=== PATIENT | male | born 1945 | race African-American/Black ===

== ENCOUNTER 2019-05-12 18:27 | Emergency (ER) | payer OTHER ==
[~2019-05-12] VITALS: Ht 182.9 cm; Wt 72.6 kg
[2019-05-12 21:35] LABS: Basophils # (auto) 0 uL; Basophils % (auto) 0.4 % (0.0-2.0); Eosinophils # (auto) 0.1 uL; Eosinophils % (auto) 1.8 % (0.0-7.0); Hematocrit 43.1 % (41.0-53.0); Lymphocytes # (auto) 1.7 uL; Lymphocytes % (auto) 21.6 % (10.0-50.0); Mean Corpuscular Hemoglobin 33.5 pg (28.0-32.0); Mean Corpuscular Hgb Conc. 34.7 g/dL (32.0-36.0); Mean Corpuscular Volume 96.5 fL (80.0-100.0); Monocytes # (auto) 0.5 uL; Monocytes % (auto) 6.5 % (0.0-12.0); Neutrophils # (auto) 5.5 uL; Neutrophils % (auto) 69.7 % (37.0-80.0); Nucleated Red Blood Cells % 0.1 %; Platelet Count (auto) 130 10^3/uL (140-450); Red Blood Cells 4.47 10^6/uL (4.5-5.90); Red Cell Distribution Width 12.9 % (11.8-14.3); White Blood Cell 7.9 10^3/uL (4.4-10.8)
[2019-05-12 21:49] LABS: INR 0.98 (0.9-1.15); Partial Thromboplastin Time 25.2 sec (23.64-32.05)
[2019-05-12 21:56] LABS: Potassium 4.3 mmol/L (3.5-5.1)
[2019-05-12 21:59] LABS: BUN/Creatinine Ratio 10.6; Bilirubin, Total 0.5 mg/dL (0.2-1.0); Total Protein 7.9 g/dL (6.4-8.2)
[2019-05-12] MEDS ORDERED: FOLIC ACID 1 MG, MULTIPLE VITAMIN 10 ML, MAGNESIUM SULF SDV 50% 8 MEQ, THIAMINE INJ 100... INJ SCH ×5 (22:00)
[2019-05-12] MEDS ORDERED: LIDOCAINE W/ EPINEPHRINE 2% INJ 20ML VIAL ID ONE (22:00)
[2019-05-12 23:40] LABS: Urine Bacteria NONE SEEN /hpf (None Seen); Urine Blood Negative /uL (Negative); Urine Specific Gravity 1.004 (1.001-1.035); Urine WBC 6 /hpf (0 - 3)
[2019-05-12 23:48] LABS: Amphetamine Screen, Urine NEGATIVE (NEGATIVE); Barbiturate Scree,Urine NEGATIVE (NEGATIVE); Benzodiazephine Screen, Urine NEGATIVE (NEGATIVE); Cannabinoid Screen, Urine NEGATIVE (NEGATIVE); Cocaine Screen, Urine NEGATIVE (NEGATIVE); Opiate Scree,Urine NEGATIVE (NEGATIVE); Phencyclidine Screen, Urine NEGATIVE (NEGATIVE)
[2019-05-13] MEDS ORDERED: LIDOCAINE W/ EPINEPHRINE 1% 20ML VIAL ONE (00:06)
[2019-05-13] MEDS ORDERED: SODIUM CHLORIDE 0.9% 1,000 ML IV ONE (01:00)
[2019-05-13] MEDS ORDERED: LIDOCAINE 2% JELLY 11ml (GLYDO) ONE (10:03)
[2019-05-13] MEDS ORDERED: LIDOCAINE 2% JELLY 11ml (GLYDO) UR ONE (10:15)
[2019-05-13 11:27] VITALS: BP 149/59
== END 2019-05-13 11:49 | disposition short-term general hospital (02) ==
LOC: EDBD 18:27 → ER 18:34
DX: S01.511A Laceration without foreign body of lip, initial encounter (principal); F10.129 Alcohol abuse with intoxication, unspecified; N39.0 Urinary tract infection, site not specified; M47.892 Other spondylosis, cervical region; Y90.6 Blood alcohol level of 120-199 mg/100 ml; W01.0XXA Fall on same level from slipping, tripping and stumbling without subsequent striking against object, initial encounter; Y93.89 Activity, other specified; Y92.89 Other specified places as the place of occurrence of the external cause; Y99.8 Other external cause status
CPT/HCPCS: 12011; 36415; 70450; 70486; 72125; 72131; 80053; 80307; 80320; 81001; 83880; 85025; 85610; 85730; 93005

== ENCOUNTER 2021-04-05 19:32 | Inpatient (IN) | payer OTHER ==
[~2021-04-05] VITALS: Ht 160 cm; Wt 63.1 kg
[2021-04-05 21:29] LABS: Basophils # (auto) 0.1 10 ^3/uL (0-0.2); Basophils % (auto) 0.4 % (0.0-2.0); Eosinophils # (auto) 0 10 ^3/uL (0-0.8); Eosinophils % (auto) 0.4 % (0.0-7.0); Hematocrit 29.7 % (41.0-53.0); Hemoglobin 9.8 g/dL (13.5-17.5); Lymphocytes # (auto) 1.6 10 ^3/uL (0.4-5.4); Lymphocytes % (auto) 12.6 % (10.0-50.0); Mean Corpuscular Hgb Conc. 33.1 g/dL (32.0-36.0); Mean Corpuscular Volume 87.6 fL (80.0-100.0); Monocytes # (auto) 0.6 10 ^3/uL (0-1.3); Monocytes % (auto) 4.6 % (0.0-12.0); Neutrophils # (auto) 10.3 10 ^3/uL (1.6-8.6); Red Blood Cells 3.39 10^6/uL (4.5-5.90); White Blood Cell 12.6 10^3/uL (4.4-10.8)
[2021-04-05] MEDS ORDERED: ACETAMINOPHEN 650 mg PER 20.3 mL UD PO ONE (21:30)
[2021-04-05 21:41] LABS: INR 1.15 (0.9-1.15)
[2021-04-05 21:42] LABS: Albumin 2.5 g/dL (3.4-5.0); Magnesium 3.2 mg/dL (1.6-2.6); Potassium 5.1 mmol/L (3.5-5.1)
[2021-04-05 21:48] LABS: Lactic Acid w/Reflex 2.1 mmol/L (0.4-2.0)
[2021-04-05 21:48] LABS: Urine Bacteria FEW /hpf (None Seen); Urine Blood 1+ /uL (Negative); Urine Specific Gravity 1.013 (1.001-1.035); Urine WBC 361 /hpf (0 - 3); Urine WBC Clumps PRESENT /hpf (None Seen)
[2021-04-05 21:51] LABS: Bilirubin, Total 0.2 mg/dL (0.2-1.0); CRP High Sensitivity 14.8 mg/dL (< 0.3); Total Protein 9.4 g/dL (6.4-8.2)
[2021-04-05] MEDS ORDERED: PIPERACILLIN-TAZOB 2.25GM 50 ML IV ONE (23:00)
[2021-04-05] MEDS ORDERED: VANCOMYCIN 1GM/250ML 250 ML IV ONE (23:00)
[2021-04-05] MEDS ORDERED: SODIUM CHLORIDE 0.9% 1,000 ML IV ONE (23:00)
[2021-04-06] MEDS ORDERED: VANCOMYCIN PER PHARMACY 0 MG IV SCH (00:45)
[2021-04-06] MEDS ORDERED: MORPHINE SULFATE INJECTION 2 MG/ML SYRG IV PRN (00:45)
[2021-04-06] MEDS ORDERED: DOCUSATE SOD 100 MG CAP PO PRN (00:45)
[2021-04-06] MEDS ORDERED: NITROGLYCERIN 0.4 MG SL TAB SL PRN (00:45)
[2021-04-06] MEDS ORDERED: ONDANSETRON HCL 4 MG/2 ML VIAL IV PRN (00:45)
[2021-04-06] MEDS ORDERED: ALBUMIN 25% 50 ML IV ONE (01:30)
[2021-04-06] MEDS: PIPERACILLIN-TAZOB 2.25GM 50 ML IV SCH ×3 (06:14→18:16)
[2021-04-06] MEDS: SODIUM CHLOR 0.9% PF (SALINE LOCK) 10ML VIAL/SYR IV SCH ×3 (06:14→22:00)
[2021-04-06 06:51] LABS: Eosinophils # (auto) 0.1 10 ^3/uL (0-0.8); Hemoglobin 7.2 g/dL (13.5-17.5); Lymphocytes # (auto) 1.9 10 ^3/uL (0.4-5.4); Monocytes # (auto) 0.8 10 ^3/uL (0-1.3); Neutrophils # (auto) 10.5 10 ^3/uL (1.6-8.6); Red Blood Cells 2.45 10^6/uL (4.5-5.90)
[2021-04-06 06:53] LABS: Basophils # (auto) 0 10 ^3/uL (0-0.2); Basophils % (auto) 0.3 % (0.0-2.0); Eosinophils % (auto) 0.9 % (0.0-7.0); Hematocrit 21.3 % (41.0-53.0); Lymphocytes % (auto) 14.4 % (10.0-50.0); Mean Corpuscular Hemoglobin 29.2 pg (28.0-32.0); Mean Corpuscular Hgb Conc. 33.5 g/dL (32.0-36.0); Mean Corpuscular Volume 87.1 fL (80.0-100.0); Monocytes % (auto) 5.9 % (0.0-12.0); Neutrophils % (auto) 78.5 % (37.0-80.0); Nucleated Red Blood Cells % 0.1 %; Red Cell Distribution Width 15.1 % (11.8-14.3); White Blood Cell 13.3 10^3/uL (4.4-10.8)
[2021-04-06 07:18] LABS: Albumin 2.2 g/dL (3.4-5.0); Calcium 8.5 mg/dL (8.5-10.1); Potassium 4.7 mmol/L (3.5-5.1)
[2021-04-06 07:24] LABS: BUN/Creatinine Ratio 18.9; Bilirubin, Total 0.2 mg/dL (0.2-1.0); Total Protein 7.7 g/dL (6.4-8.2)
[2021-04-06] MEDS: FAMOTIDINE (10MG/ML) 2ML VL IV SCH (10:40)
[2021-04-06] MEDS: ZINC SULFATE 220mg CAP or TAB PO SCH (10:40)
[2021-04-06] MEDS: ASCORBIC ACID 500 MG TAB PO SCH ×2 (10:41→21:42)
[2021-04-06] MEDS: MULTIPLE VITAMIN TAB PO SCH (10:41)
[2021-04-06] MEDS: HEPARIN SODIUM (PORCINE) 5000 UNITS/ML 1ML VIAL SC SCH ×2 (10:44→21:42)
[2021-04-06] MEDS: LACTATED RINGER'S 1,000 ML IV SCH (13:45)
[2021-04-06] MEDS ORDERED: LIDOCAINE 2% JELLY 11ml (GLYDO) UR ONE (16:00)
[2021-04-06 19:00] VITALS: BP 112/53
[2021-04-06 22:00] VITALS: BP 117/40
[2021-04-06] MEDS: HYDROcodone-ACET 5/325MG TAB PO PRN (23:27)
[2021-04-07] MEDS: PIPERACILLIN-TAZOB 2.25GM 50 ML IV SCH ×5 (01:57→23:34)
[2021-04-07 02:55] VITALS: BP 112/53
[2021-04-07] MEDS: LACTATED RINGER'S 1,000 ML IV SCH (03:05)
[2021-04-07] MEDS ORDERED: MULTCAP45 PO (04:35)
[2021-04-07] MEDS ORDERED: SULF400I3 PO (04:35)
[2021-04-07] MEDS ORDERED: ASCO500T11 PO (04:35)
[2021-04-07] MEDS ORDERED: GABA100C9 PO (04:35)
[2021-04-07] MEDS ORDERED: FOLI1TAB6 PO (04:35)
[2021-04-07] MEDS ORDERED: TRAM50TA2 PO (04:35)
[2021-04-07] MEDS ORDERED: BACL10TA PO (04:35)
[2021-04-07] MEDS ORDERED: CHOL20007 PO (04:35)
[2021-04-07 05:00] VITALS: BP 98/62
[2021-04-07 05:24] LABS: Lymphocytes # (auto) 1.9 10 ^3/uL (0.4-5.4); Red Cell Distribution Width 15.1 % (11.8-14.3)
[2021-04-07 05:28] LABS: Basophils # (auto) 0 10 ^3/uL (0-0.2); Basophils % (auto) 0.4 % (0.0-2.0); Eosinophils # (auto) 0.2 10 ^3/uL (0-0.8); Eosinophils % (auto) 1.6 % (0.0-7.0); Hematocrit 22.5 % (41.0-53.0); Hemoglobin 7.8 g/dL (13.5-17.5); Lymphocytes % (auto) 18.5 % (10.0-50.0); Mean Corpuscular Hemoglobin 30.3 pg (28.0-32.0); Mean Corpuscular Hgb Conc. 34.6 g/dL (32.0-36.0); Mean Corpuscular Volume 87.6 fL (80.0-100.0); Monocytes # (auto) 0.7 10 ^3/uL (0-1.3); Monocytes % (auto) 6.7 % (0.0-12.0); Neutrophils # (auto) 7.7 10 ^3/uL (1.6-8.6); Neutrophils % (auto) 72.8 % (37.0-80.0); Red Blood Cells 2.56 10^6/uL (4.5-5.90); White Blood Cell 10.6 10^3/uL (4.4-10.8)
[2021-04-07] MEDS: SODIUM CHLOR 0.9% PF (SALINE LOCK) 10ML VIAL/SYR IV SCH ×3 (05:38→22:12)
[2021-04-07 05:44] LABS: Potassium 4.1 mmol/L (3.5-5.1)
[2021-04-07 05:51] LABS: BUN/Creatinine Ratio 21.2; Bilirubin, Total 0.2 mg/dL (0.2-1.0); Calcium 8.1 mg/dL (8.5-10.1); Total Protein 7.6 g/dL (6.4-8.2)
[2021-04-07 09:00] VITALS: BP 103/50
[2021-04-07] MEDS: ASCORBIC ACID 500 MG TAB PO SCH ×2 (09:36→22:13)
[2021-04-07] MEDS: FAMOTIDINE (10MG/ML) 2ML VL IV SCH (09:36)
[2021-04-07] MEDS: ZINC SULFATE 220mg CAP or TAB PO SCH (09:36)
[2021-04-07] MEDS: MULTIPLE VITAMIN TAB PO SCH (09:36)
[2021-04-07] MEDS: HEPARIN SODIUM (PORCINE) 5000 UNITS/ML 1ML VIAL SC SCH ×2 (09:37→22:12)
[2021-04-07] MEDS: HYDROcodone-ACET 5/325MG TAB PO PRN (12:40)
[2021-04-07 12:53] VITALS: BP 105/56
[2021-04-07 17:00] VITALS: BP 91/44
[2021-04-07 22:00] VITALS: BP 124/56
[2021-04-08] MEDS ORDERED: VANCOMYCIN 1GM/250ML 250 ML IV SCH (01:00)
[2021-04-08 05:00] VITALS: BP 123/54
[2021-04-08 05:34] LABS: Eosinophils # (auto) 0.2 10 ^3/uL (0-0.8); Mean Corpuscular Hemoglobin 29.6 pg (28.0-32.0); Monocytes # (auto) 0.8 10 ^3/uL (0-1.3); Red Cell Distribution Width 14.8 % (11.8-14.3)
[2021-04-08] MEDS: SODIUM CHLOR 0.9% PF (SALINE LOCK) 10ML VIAL/SYR IV SCH ×3 (05:34→23:08)
[2021-04-08] MEDS: PIPERACILLIN-TAZOB 2.25GM 50 ML IV SCH ×4 (05:34→23:52)
[2021-04-08] MEDS: LACTATED RINGER'S 1,000 ML IV SCH (05:35)
[2021-04-08 05:36] LABS: Basophils # (auto) 0 10 ^3/uL (0-0.2); Basophils % (auto) 0.6 % (0.0-2.0); Eosinophils % (auto) 1.9 % (0.0-7.0); Hematocrit 21.6 % (41.0-53.0); Hemoglobin 7.3 g/dL (13.5-17.5); Lymphocytes # (auto) 2.5 10 ^3/uL (0.4-5.4); Lymphocytes % (auto) 28.4 % (10.0-50.0); Mean Corpuscular Hgb Conc. 33.6 g/dL (32.0-36.0); Mean Corpuscular Volume 88.1 fL (80.0-100.0); Neutrophils # (auto) 5.2 10 ^3/uL (1.6-8.6); Neutrophils % (auto) 60.1 % (37.0-80.0); Red Blood Cells 2.46 10^6/uL (4.5-5.90); White Blood Cell 8.7 10^3/uL (4.4-10.8)
[2021-04-08 05:56] LABS: Calcium 8.3 mg/dL (8.5-10.1); Potassium 3.8 mmol/L (3.5-5.1)
[2021-04-08 06:02] LABS: BUN/Creatinine Ratio 20.4; Bilirubin, Total 0.2 mg/dL (0.2-1.0); Total Protein 7.8 g/dL (6.4-8.2)
[2021-04-08 09:00] VITALS: BP 118/58
[2021-04-08] MEDS: ZINC SULFATE 220mg CAP or TAB PO SCH (11:02)
[2021-04-08] MEDS: ASCORBIC ACID 500 MG TAB PO SCH ×2 (11:03→23:11)
[2021-04-08] MEDS: MULTIPLE VITAMIN TAB PO SCH (11:03)
[2021-04-08] MEDS: HEPARIN SODIUM (PORCINE) 5000 UNITS/ML 1ML VIAL SC SCH ×2 (11:15→23:12)
[2021-04-08 12:53] VITALS: BP 120/52
[2021-04-08 17:00] VITALS: BP 102/53
[2021-04-08 21:35] VITALS: BP 122/62
[2021-04-08 21:39] VITALS: BP 122/62
[2021-04-09] MEDS: LACTATED RINGER'S 1,000 ML IV SCH ×3 (05:02→21:15)
[2021-04-09] MEDS: PIPERACILLIN-TAZOB 2.25GM 50 ML IV SCH ×3 (05:18→18:39)
[2021-04-09] MEDS: SODIUM CHLOR 0.9% PF (SALINE LOCK) 10ML VIAL/SYR IV SCH ×3 (05:18→21:17)
[2021-04-09 05:27] VITALS: BP 111/56
[2021-04-09 08:53] VITALS: BP 115/60
[2021-04-09] MEDS: MULTIPLE VITAMIN TAB PO SCH (10:44)
[2021-04-09] MEDS: ASCORBIC ACID 500 MG TAB PO SCH ×2 (10:44→21:17)
[2021-04-09] MEDS: ZINC SULFATE 220mg CAP or TAB PO SCH (10:44)
[2021-04-09] MEDS: HEPARIN SODIUM (PORCINE) 5000 UNITS/ML 1ML VIAL SC SCH ×2 (10:56→21:20)
[2021-04-09 13:00] VITALS: BP 114/57
[2021-04-09] MEDS: VANCOMYCIN 1GM/250ML 250 ML IV SCH (16:02)
[2021-04-09 17:00] VITALS: BP 120/50
[2021-04-09 20:10] VITALS: BP 140/57
[2021-04-09 21:11] VITALS: BP 140/57
[2021-04-10] MEDS: PIPERACILLIN-TAZOB 2.25GM 50 ML IV SCH ×5 (00:12→23:26)
[2021-04-10] MEDS: HYDROcodone-ACET 5/325MG TAB PO PRN ×2 (00:27→11:46)
[2021-04-10] MEDS: SODIUM CHLOR 0.9% PF (SALINE LOCK) 10ML VIAL/SYR IV SCH ×3 (05:27→22:04)
[2021-04-10 05:39] VITALS: BP 90/46
[2021-04-10 09:00] VITALS: BP 114/48
[2021-04-10] MEDS: ASCORBIC ACID 500 MG TAB PO SCH ×2 (09:37→22:04)
[2021-04-10] MEDS: MULTIPLE VITAMIN TAB PO SCH (09:37)
[2021-04-10] MEDS: ZINC SULFATE 220mg CAP or TAB PO SCH (09:37)
[2021-04-10] MEDS: HEPARIN SODIUM (PORCINE) 5000 UNITS/ML 1ML VIAL SC SCH ×2 (09:38→22:05)
[2021-04-10] MEDS: LACTATED RINGER'S 1,000 ML IV SCH (11:01)
[2021-04-10 13:00] VITALS: BP 95/46
[2021-04-10] MEDS: VANCOMYCIN 1GM/250ML 250 ML IV SCH (16:17)
[2021-04-10 17:00] VITALS: BP 102/59
[2021-04-10 22:00] VITALS: BP 127/45
[2021-04-11] MEDS: HYDROcodone-ACET 5/325MG TAB PO PRN ×2 (01:16→22:35)
[2021-04-11] MEDS: LACTATED RINGER'S 1,000 ML IV SCH ×2 (01:27→13:45)
[2021-04-11 05:00] VITALS: BP 99/49
[2021-04-11] MEDS: SODIUM CHLOR 0.9% PF (SALINE LOCK) 10ML VIAL/SYR IV SCH ×3 (05:47→21:38)
[2021-04-11] MEDS: PIPERACILLIN-TAZOB 2.25GM 50 ML IV SCH ×4 (05:47→23:56)
[2021-04-11 08:00] VITALS: BP 106/50
[2021-04-11] MEDS: ZINC SULFATE 220mg CAP or TAB PO SCH (11:20)
[2021-04-11] MEDS: ASCORBIC ACID 500 MG TAB PO SCH ×2 (11:20→21:38)
[2021-04-11] MEDS: MULTIPLE VITAMIN TAB PO SCH (11:20)
[2021-04-11 13:00] VITALS: BP 105/52
[2021-04-11 13:32] LABS: Basophils # (auto) 0.1 10 ^3/uL (0-0.2); Basophils % (auto) 1.4 % (0.0-2.0); Eosinophils # (auto) 0.1 10 ^3/uL (0-0.8); Eosinophils % (auto) 2.4 % (0.0-7.0); Hematocrit 23.4 % (41.0-53.0); Hemoglobin 7.6 g/dL (13.5-17.5); Lymphocytes # (auto) 1.5 10 ^3/uL (0.4-5.4); Mean Corpuscular Hemoglobin 29.2 pg (28.0-32.0); Mean Corpuscular Hgb Conc. 32.6 g/dL (32.0-36.0); Mean Corpuscular Volume 89.5 fL (80.0-100.0); Monocytes # (auto) 0.4 10 ^3/uL (0-1.3); Monocytes % (auto) 7.2 % (0.0-12.0); Neutrophils # (auto) 3.7 10 ^3/uL (1.6-8.6); Nucleated Red Blood Cells % 0.1 %; Red Blood Cells 2.61 10^6/uL (4.5-5.90); Red Cell Distribution Width 14.8 % (11.8-14.3); White Blood Cell 5.8 10^3/uL (4.4-10.8)
[2021-04-11 13:50] LABS: BUN/Creatinine Ratio 17.3; Calcium 8.3 mg/dL (8.5-10.1); Potassium 3.9 mmol/L (3.5-5.1)
[2021-04-11] MEDS: Ensure Enlive Strawberry 8oz Bottle PO SCH ×2 (13:51→18:36)
[2021-04-11] MEDS: VANCOMYCIN 1GM/250ML 250 ML IV SCH (16:40)
[2021-04-11 17:33] VITALS: BP 129/65
[2021-04-11 22:00] VITALS: BP 114/53
[2021-04-12] MEDS: LACTATED RINGER'S 1,000 ML IV SCH ×2 (03:21→16:25)
[2021-04-12 05:00] VITALS: BP 119/50
[2021-04-12] MEDS: HEPARIN SODIUM (PORCINE) 5000 UNITS/ML 1ML VIAL SC SCH ×2 (05:28→17:39)
[2021-04-12] MEDS: SODIUM CHLOR 0.9% PF (SALINE LOCK) 10ML VIAL/SYR IV SCH ×3 (05:31→20:59)
[2021-04-12] MEDS: PIPERACILLIN-TAZOB 2.25GM 50 ML IV SCH ×4 (05:31→23:46)
[2021-04-12] MEDS: HYDROcodone-ACET 5/325MG TAB PO PRN ×3 (05:31→20:58)
[2021-04-12] MEDS: Ensure Enlive Strawberry 8oz Bottle PO SCH ×3 (08:00→18:00)
[2021-04-12 09:00] VITALS: BP 108/54
[2021-04-12] MEDS: MULTIPLE VITAMIN TAB PO SCH (10:38)
[2021-04-12] MEDS: ASCORBIC ACID 500 MG TAB PO SCH ×2 (10:38→20:58)
[2021-04-12] MEDS: ZINC SULFATE 220mg CAP or TAB PO SCH (10:38)
[2021-04-12 13:00] VITALS: BP 118/53
[2021-04-12] MEDS: VANCOMYCIN 500 MG in D5W 5% 100 ML IV SCH (20:59)
[2021-04-12 22:00] VITALS: BP 115/47
[2021-04-13] MEDS: HYDROcodone-ACET 5/325MG TAB PO PRN ×4 (01:43→21:33)
[2021-04-13] MEDS: PIPERACILLIN-TAZOB 2.25GM 50 ML IV SCH ×3 (05:20→18:13)
[2021-04-13] MEDS: SODIUM CHLOR 0.9% PF (SALINE LOCK) 10ML VIAL/SYR IV SCH ×3 (05:20→21:33)
[2021-04-13] MEDS: HEPARIN SODIUM (PORCINE) 5000 UNITS/ML 1ML VIAL SC SCH ×2 (05:25→18:15)
[2021-04-13] MEDS: LACTATED RINGER'S 1,000 ML IV SCH ×2 (05:28→23:00)
[2021-04-13 06:31] LABS: Calcium 8.7 mg/dL (8.5-10.1); Potassium 3.6 mmol/L (3.5-5.1)
[2021-04-13 07:33] LABS: Basophils # (auto) 0.1 10 ^3/uL (0-0.2); Eosinophils # (auto) 0.1 10 ^3/uL (0-0.8); Lymphocytes # (auto) 2.3 10 ^3/uL (0.4-5.4); Mean Corpuscular Volume 87.7 fL (80.0-100.0); Monocytes # (auto) 0.4 10 ^3/uL (0-1.3)
[2021-04-13 07:36] LABS: Basophils % (auto) 1.1 % (0.0-2.0); Eosinophils % (auto) 2.1 % (0.0-7.0); Hematocrit 21.9 % (41.0-53.0); Hemoglobin 7.3 g/dL (13.5-17.5); Lymphocytes % (auto) 45.9 % (10.0-50.0); Mean Corpuscular Hemoglobin 29.1 pg (28.0-32.0); Mean Corpuscular Hgb Conc. 33.2 g/dL (32.0-36.0); Monocytes % (auto) 8.8 % (0.0-12.0); Neutrophils # (auto) 2.1 10 ^3/uL (1.6-8.6); Neutrophils % (auto) 42.1 % (37.0-80.0); Red Cell Distribution Width 15.3 % (11.8-14.3)
[2021-04-13] MEDS: Ensure Enlive Strawberry 8oz Bottle PO SCH ×3 (08:00→18:00)
[2021-04-13 09:00] VITALS: BP 98/58
[2021-04-13] MEDS: ASCORBIC ACID 500 MG TAB PO SCH ×2 (10:16→21:32)
[2021-04-13] MEDS: MULTIPLE VITAMIN TAB PO SCH (10:16)
[2021-04-13] MEDS: ZINC SULFATE 220mg CAP or TAB PO SCH (10:17)
[2021-04-13 13:00] VITALS: BP 112/78
[2021-04-13 17:00] VITALS: BP 134/64
[2021-04-13] MEDS: VANCOMYCIN 500 MG in D5W 5% 100 ML IV SCH (21:05)
[2021-04-13 21:11] VITALS: BP 109/52
[2021-04-13] MEDS: ACETAMINOPHEN 325 MG TAB PO PRN (23:07)
[2021-04-14] MEDS: PIPERACILLIN-TAZOB 2.25GM 50 ML IV SCH ×4 (00:09→17:04)
[2021-04-14] MEDS: HYDROcodone-ACET 5/325MG TAB PO PRN ×4 (02:15→21:43)
[2021-04-14 04:50] VITALS: BP 118/63
[2021-04-14] MEDS: SODIUM CHLOR 0.9% PF (SALINE LOCK) 10ML VIAL/SYR IV SCH ×3 (05:41→21:39)
[2021-04-14] MEDS: HEPARIN SODIUM (PORCINE) 5000 UNITS/ML 1ML VIAL SC SCH ×2 (06:18→17:05)
[2021-04-14 09:15] VITALS: BP 112/49
[2021-04-14] MEDS: MULTIPLE VITAMIN TAB PO SCH (09:39)
[2021-04-14] MEDS: ASCORBIC ACID 500 MG TAB PO SCH ×2 (09:39→21:43)
[2021-04-14] MEDS: ZINC SULFATE 220mg CAP or TAB PO SCH (09:39)
[2021-04-14] MEDS: LACTATED RINGER'S 1,000 ML IV SCH ×2 (09:50→21:43)
[2021-04-14] MEDS: Ensure Enlive Strawberry 8oz Bottle PO SCH ×3 (09:50→17:04)
[2021-04-14 13:00] VITALS: BP 112/50
[2021-04-14 16:56] VITALS: BP 111/52
[2021-04-14] MEDS: VANCOMYCIN 500 MG in D5W 5% 100 ML IV SCH (20:42)
[2021-04-14 22:00] VITALS: BP 108/70
[2021-04-15] MEDS: PIPERACILLIN-TAZOB 2.25GM 50 ML IV SCH ×4 (00:01→16:40)
[2021-04-15] MEDS: HYDROcodone-ACET 5/325MG TAB PO PRN ×3 (04:55→21:03)
[2021-04-15 05:00] VITALS: BP 94/55
[2021-04-15] MEDS: SODIUM CHLOR 0.9% PF (SALINE LOCK) 10ML VIAL/SYR IV SCH ×3 (05:34→21:15)
[2021-04-15] MEDS: HEPARIN SODIUM (PORCINE) 5000 UNITS/ML 1ML VIAL SC SCH ×2 (05:39→16:45)
[2021-04-15] MEDS: Ensure Enlive Strawberry 8oz Bottle PO SCH ×3 (08:42→16:41)
[2021-04-15] MEDS: MULTIPLE VITAMIN TAB PO SCH (08:56)
[2021-04-15] MEDS: ZINC SULFATE 220mg CAP or TAB PO SCH (08:56)
[2021-04-15] MEDS: ASCORBIC ACID 500 MG TAB PO SCH ×2 (08:56→22:19)
[2021-04-15 09:00] VITALS: BP 108/48
[2021-04-15] MEDS: LACTATED RINGER'S 1,000 ML IV SCH (11:05)
[2021-04-15 17:25] VITALS: BP 111/53
[2021-04-15 21:12] VITALS: BP 124/53
[2021-04-15] MEDS: DAKINS HALF STR 0.25% (NaHypochlorite) 473 ML TOPICAL SOL TOP SCH (22:00)
[2021-04-15] MEDS: VANCOMYCIN 500 MG in D5W 5% 100 ML IV SCH (22:20)
[2021-04-16] MEDS: LACTATED RINGER'S 1,000 ML IV SCH ×2 (00:41→13:28)
[2021-04-16] MEDS: PIPERACILLIN-TAZOB 2.25GM 50 ML IV SCH ×5 (00:43→23:46)
[2021-04-16 05:16] VITALS: BP 109/55
[2021-04-16] MEDS: HYDROcodone-ACET 5/325MG TAB PO PRN (05:34)
[2021-04-16] MEDS: HEPARIN SODIUM (PORCINE) 5000 UNITS/ML 1ML VIAL SC SCH ×2 (05:35→18:05)
[2021-04-16] MEDS: SODIUM CHLOR 0.9% PF (SALINE LOCK) 10ML VIAL/SYR IV SCH ×3 (05:36→21:43)
[2021-04-16 09:23] VITALS: BP 110/58
[2021-04-16] MEDS: ZINC SULFATE 220mg CAP or TAB PO SCH (10:00)
[2021-04-16] MEDS: MULTIPLE VITAMIN TAB PO SCH (10:00)
[2021-04-16] MEDS: ASCORBIC ACID 500 MG TAB PO SCH ×2 (10:00→21:43)
[2021-04-16] MEDS: Ensure Enlive Strawberry 8oz Bottle PO SCH ×3 (10:29→18:05)
[2021-04-16] MEDS: DAKINS HALF STR 0.25% (NaHypochlorite) 473 ML TOPICAL SOL TOP SCH ×2 (10:30→22:00)
[2021-04-16 13:00] VITALS: BP 112/54
[2021-04-16 16:29] VITALS: BP 140/74
[2021-04-16 22:00] VITALS: BP 125/59
[2021-04-17] MEDS: HYDROcodone-ACET 5/325MG TAB PO PRN (02:46)
[2021-04-17] MEDS: LACTATED RINGER'S 1,000 ML IV SCH ×2 (03:08→17:11)
[2021-04-17] MEDS: VANCOMYCIN 500 MG in D5W 5% 100 ML IV SCH (04:13)
[2021-04-17] MEDS: DAKINS HALF STR 0.25% (NaHypochlorite) 473 ML TOPICAL SOL TOP SCH ×2 (04:30→18:19)
[2021-04-17 04:57] VITALS: BP 113/57
[2021-04-17] MEDS: HEPARIN SODIUM (PORCINE) 5000 UNITS/ML 1ML VIAL SC SCH ×2 (05:30→19:06)
[2021-04-17] MEDS: PIPERACILLIN-TAZOB 2.25GM 50 ML IV SCH ×4 (05:30→23:43)
[2021-04-17] MEDS: SODIUM CHLOR 0.9% PF (SALINE LOCK) 10ML VIAL/SYR IV SCH ×3 (06:02→21:12)
[2021-04-17 07:06] LABS: Eosinophils # (auto) 0 10 ^3/uL (0-0.8); Eosinophils % (auto) 0.8 % (0.0-7.0); Hematocrit 21.4 % (41.0-53.0); Lymphocytes # (auto) 1.5 10 ^3/uL (0.4-5.4); Neutrophils # (auto) 4.2 10 ^3/uL (1.6-8.6)
[2021-04-17 07:08] LABS: Basophils # (auto) 0.1 10 ^3/uL (0-0.2); Basophils % (auto) 0.9 % (0.0-2.0); Hemoglobin 7.3 g/dL (13.5-17.5); Lymphocytes % (auto) 23.4 % (10.0-50.0); Mean Corpuscular Hemoglobin 30.5 pg (28.0-32.0); Mean Corpuscular Hgb Conc. 34.2 g/dL (32.0-36.0); Mean Corpuscular Volume 89.2 fL (80.0-100.0); Monocytes # (auto) 0.6 10 ^3/uL (0-1.3); Monocytes % (auto) 9.9 % (0.0-12.0); Nucleated Red Blood Cells % 0.1 %; Red Blood Cells 2.41 10^6/uL (4.5-5.90); Red Cell Distribution Width 17.7 % (11.8-14.3); White Blood Cell 6.4 10^3/uL (4.4-10.8)
[2021-04-17 09:00] VITALS: BP 125/77
[2021-04-17] MEDS: ASCORBIC ACID 500 MG TAB PO SCH ×2 (10:12→21:12)
[2021-04-17] MEDS: ZINC SULFATE 220mg CAP or TAB PO SCH (10:12)
[2021-04-17] MEDS: MULTIPLE VITAMIN TAB PO SCH (10:12)
[2021-04-17] MEDS: Ensure Enlive Strawberry 8oz Bottle PO SCH ×3 (10:12→18:19)
[2021-04-17] MEDS: ACETAMINOPHEN 325 MG TAB PO PRN ×2 (12:33→21:22)
[2021-04-17 13:00] VITALS: BP 110/58
[2021-04-17] MEDS: Juven Fruit Punch Powder PACKET 28.8gm PO SCH (18:00)
[2021-04-17 22:00] VITALS: BP 114/45
[2021-04-18] MEDS: HYDROcodone-ACET 5/325MG TAB PO PRN ×4 (02:33→18:07)
[2021-04-18 05:00] VITALS: BP 106/56
[2021-04-18] MEDS: HEPARIN SODIUM (PORCINE) 5000 UNITS/ML 1ML VIAL SC SCH ×2 (05:12→17:37)
[2021-04-18] MEDS: SODIUM CHLOR 0.9% PF (SALINE LOCK) 10ML VIAL/SYR IV SCH ×3 (05:13→22:15)
[2021-04-18] MEDS: PIPERACILLIN-TAZOB 2.25GM 50 ML IV SCH ×3 (05:13→18:07)
[2021-04-18] MEDS: LACTATED RINGER'S 1,000 ML IV SCH ×2 (05:46→19:45)
[2021-04-18 07:48] LABS: Calcium 8.6 mg/dL (8.5-10.1); Potassium 3.6 mmol/L (3.5-5.1)
[2021-04-18 07:50] LABS: BUN/Creatinine Ratio 21.1
[2021-04-18] MEDS: Juven Fruit Punch Powder PACKET 28.8gm PO SCH ×2 (08:00→18:00)
[2021-04-18 09:00] VITALS: BP 108/55
[2021-04-18] MEDS: Ensure Enlive Strawberry 8oz Bottle PO SCH ×3 (09:21→18:08)
[2021-04-18] MEDS: ZINC SULFATE 220mg CAP or TAB PO SCH (09:30)
[2021-04-18] MEDS: MULTIPLE VITAMIN TAB PO SCH (09:30)
[2021-04-18] MEDS: ASCORBIC ACID 500 MG TAB PO SCH ×2 (09:30→22:15)
[2021-04-18] MEDS: DAKINS HALF STR 0.25% (NaHypochlorite) 473 ML TOPICAL SOL TOP SCH ×2 (09:32→22:15)
[2021-04-18] MEDS: VANCOMYCIN 500 MG in D5W 5% 100 ML IV SCH (12:58)
[2021-04-18 13:00] VITALS: BP 113/59
[2021-04-18 17:00] VITALS: BP 117/60
[2021-04-18 22:00] VITALS: BP 110/42
[2021-04-18] MEDS: MORPHINE SULFATE INJECTION 2 MG/ML SYRG IV PRN (22:09)
[2021-04-19] VITALS (7 sets, daily range): BP systolic 107–152; BP diastolic 46–75
[2021-04-19] MEDS: PIPERACILLIN-TAZOB 2.25GM 50 ML IV SCH ×4 (00:15→21:46)
[2021-04-19] MEDS: MORPHINE SULFATE INJECTION 2 MG/ML SYRG IV PRN ×2 (04:05→13:10)
[2021-04-19] MEDS: HEPARIN SODIUM (PORCINE) 5000 UNITS/ML 1ML VIAL SC SCH ×2 (05:44→18:00)
[2021-04-19] MEDS: SODIUM CHLOR 0.9% PF (SALINE LOCK) 10ML VIAL/SYR IV SCH ×3 (05:44→21:47)
[2021-04-19] MEDS: Juven Fruit Punch Powder PACKET 28.8gm PO SCH ×2 (08:00→18:00)
[2021-04-19] MEDS: Ensure Enlive Strawberry 8oz Bottle PO SCH ×3 (08:00→18:00)
[2021-04-19] MEDS: LACTATED RINGER'S 1,000 ML IV SCH ×2 (08:25→22:21)
[2021-04-19] MEDS: DAKINS HALF STR 0.25% (NaHypochlorite) 473 ML TOPICAL SOL TOP SCH ×2 (10:00→21:47)
[2021-04-19] MEDS: ZINC SULFATE 220mg CAP or TAB PO SCH (11:39)
[2021-04-19] MEDS: MULTIPLE VITAMIN TAB PO SCH (11:39)
[2021-04-19] MEDS: ASCORBIC ACID 500 MG TAB PO SCH ×2 (11:40→21:47)
[2021-04-19] MEDS: HYDROcodone-ACET 5/325MG TAB PO PRN ×2 (15:30→21:48)
[2021-04-19] MEDS: VANCOMYCIN 750mg/250ml 250 ML IV SCH (20:16)
[2021-04-20] MEDS: PIPERACILLIN-TAZOB 2.25GM 50 ML IV SCH ×4 (03:23→20:04)
[2021-04-20 05:00] VITALS: BP 113/73
[2021-04-20 05:29] LABS: Basophils # (auto) 0.1 10 ^3/uL (0-0.2); Eosinophils # (auto) 0.1 10 ^3/uL (0-0.8); Hemoglobin 7.7 g/dL (13.5-17.5); Lymphocytes # (auto) 2.2 10 ^3/uL (0.4-5.4); Monocytes # (auto) 0.5 10 ^3/uL (0-1.3); Neutrophils # (auto) 2.5 10 ^3/uL (1.6-8.6); Nucleated Red Blood Cells % 0.1 %
[2021-04-20 05:35] LABS: Eosinophils % (auto) 1.3 % (0.0-7.0); Hematocrit 22.8 % (41.0-53.0); Lymphocytes % (auto) 41.3 % (10.0-50.0); Mean Corpuscular Hgb Conc. 33.7 g/dL (32.0-36.0); Mean Corpuscular Volume 88.8 fL (80.0-100.0); Monocytes % (auto) 9.3 % (0.0-12.0); Neutrophils % (auto) 47.1 % (37.0-80.0); Red Blood Cells 2.57 10^6/uL (4.5-5.90); Red Cell Distribution Width 17.7 % (11.8-14.3); White Blood Cell 5.2 10^3/uL (4.4-10.8)
[2021-04-20] MEDS: SODIUM CHLOR 0.9% PF (SALINE LOCK) 10ML VIAL/SYR IV SCH ×3 (05:50→21:53)
[2021-04-20] MEDS: HEPARIN SODIUM (PORCINE) 5000 UNITS/ML 1ML VIAL SC SCH ×2 (06:06→18:26)
[2021-04-20 06:15] LABS: Calcium 8.5 mg/dL (8.5-10.1); Potassium 3.7 mmol/L (3.5-5.1)
[2021-04-20] MEDS: Juven Fruit Punch Powder PACKET 28.8gm PO SCH ×2 (08:00→18:00)
[2021-04-20] MEDS: Ensure Enlive Strawberry 8oz Bottle PO SCH ×3 (08:14→18:00)
[2021-04-20 09:00] VITALS: BP 128/77
[2021-04-20] MEDS: DAKINS HALF STR 0.25% (NaHypochlorite) 473 ML TOPICAL SOL TOP SCH ×2 (10:00→21:52)
[2021-04-20] MEDS: ASCORBIC ACID 500 MG TAB PO SCH ×2 (10:05→21:53)
[2021-04-20] MEDS: MULTIPLE VITAMIN TAB PO SCH (10:05)
[2021-04-20] MEDS: MORPHINE SULFATE INJECTION 2 MG/ML SYRG IV PRN (10:05)
[2021-04-20] MEDS: ZINC SULFATE 220mg CAP or TAB PO SCH (10:05)
[2021-04-20] MEDS: LACTATED RINGER'S 1,000 ML IV SCH (11:05)
[2021-04-20 13:00] VITALS: BP 121/68
[2021-04-20 17:00] VITALS: BP 145/86
[2021-04-20 21:30] VITALS: BP 143/57
[2021-04-20] MEDS: HYDROcodone-ACET 5/325MG TAB PO PRN (22:07)
[2021-04-20] MEDS: VANCOMYCIN 750mg/250ml 250 ML IV SCH (23:43)
[2021-04-21] MEDS: LACTATED RINGER'S 1,000 ML IV SCH ×2 (02:29→14:04)
[2021-04-21] MEDS: PIPERACILLIN-TAZOB 2.25GM 50 ML IV SCH ×4 (02:30→20:53)
[2021-04-21 05:00] VITALS: BP 118/63
[2021-04-21] MEDS: SODIUM CHLOR 0.9% PF (SALINE LOCK) 10ML VIAL/SYR IV SCH ×3 (05:26→23:22)
[2021-04-21] MEDS: HEPARIN SODIUM (PORCINE) 5000 UNITS/ML 1ML VIAL SC SCH ×2 (06:39→17:41)
[2021-04-21] MEDS: Juven Fruit Punch Powder PACKET 28.8gm PO SCH ×2 (08:00→18:00)
[2021-04-21] MEDS: Ensure Enlive Strawberry 8oz Bottle PO SCH ×3 (08:17→18:00)
[2021-04-21 08:46] VITALS: BP 104/54
[2021-04-21] MEDS: MULTIPLE VITAMIN TAB PO SCH (10:13)
[2021-04-21] MEDS: ASCORBIC ACID 500 MG TAB PO SCH ×2 (10:13→23:22)
[2021-04-21] MEDS: ZINC SULFATE 220mg CAP or TAB PO SCH (10:13)
[2021-04-21] MEDS: DAKINS HALF STR 0.25% (NaHypochlorite) 473 ML TOPICAL SOL TOP SCH ×2 (10:25→23:22)
[2021-04-21 13:00] VITALS: BP 130/64
[2021-04-21] MEDS: MORPHINE SULFATE INJECTION 2 MG/ML SYRG IV PRN (14:03)
[2021-04-21 17:00] VITALS: BP 132/58
[2021-04-21 22:00] VITALS: BP 113/56
[2021-04-21] MEDS: HYDROcodone-ACET 5/325MG TAB PO PRN (23:24)
[2021-04-22] MEDS: PIPERACILLIN-TAZOB 2.25GM 50 ML IV SCH ×4 (02:24→21:21)
[2021-04-22] MEDS: LACTATED RINGER'S 1,000 ML IV SCH ×2 (04:39→16:25)
[2021-04-22] MEDS: HYDROcodone-ACET 5/325MG TAB PO PRN ×2 (04:43→13:12)
[2021-04-22 05:00] VITALS: BP 110/55
[2021-04-22] MEDS: SODIUM CHLOR 0.9% PF (SALINE LOCK) 10ML VIAL/SYR IV SCH ×3 (05:53→22:17)
[2021-04-22] MEDS: VANCOMYCIN 750mg/250ml 250 ML IV SCH (05:54)
[2021-04-22] MEDS: HEPARIN SODIUM (PORCINE) 5000 UNITS/ML 1ML VIAL SC SCH ×2 (05:54→17:45)
[2021-04-22] MEDS: Ensure Enlive Strawberry 8oz Bottle PO SCH ×3 (08:00→18:00)
[2021-04-22] MEDS: Juven Fruit Punch Powder PACKET 28.8gm PO SCH ×2 (08:00→18:00)
[2021-04-22] MEDS: MORPHINE SULFATE INJECTION 2 MG/ML SYRG IV PRN ×2 (08:13→22:18)
[2021-04-22 08:45] VITALS: BP 115/57
[2021-04-22] MEDS: MULTIPLE VITAMIN TAB PO SCH (10:33)
[2021-04-22] MEDS: ZINC SULFATE 220mg CAP or TAB PO SCH (10:33)
[2021-04-22] MEDS: ASCORBIC ACID 500 MG TAB PO SCH ×2 (10:34→22:17)
[2021-04-22] MEDS: DAKINS HALF STR 0.25% (NaHypochlorite) 473 ML TOPICAL SOL TOP SCH (10:35)
[2021-04-22 13:00] VITALS: BP 134/70
[2021-04-22 22:00] VITALS: BP 144/73
[2021-04-23] MEDS: DAKINS HALF STR 0.25% (NaHypochlorite) 473 ML TOPICAL SOL TOP SCH ×3 (00:22→22:37)
[2021-04-23] MEDS: PIPERACILLIN-TAZOB 2.25GM 50 ML IV SCH ×4 (02:00→20:27)
[2021-04-23 05:00] VITALS: BP 122/66
[2021-04-23] MEDS: SODIUM CHLOR 0.9% PF (SALINE LOCK) 10ML VIAL/SYR IV SCH ×3 (05:55→22:37)
[2021-04-23] MEDS: HEPARIN SODIUM (PORCINE) 5000 UNITS/ML 1ML VIAL SC SCH ×2 (05:58→17:50)
[2021-04-23] MEDS: LACTATED RINGER'S 1,000 ML IV SCH ×3 (06:05→23:00)
[2021-04-23] MEDS: Ensure Enlive Strawberry 8oz Bottle PO SCH ×3 (08:00→18:00)
[2021-04-23] MEDS: Juven Fruit Punch Powder PACKET 28.8gm PO SCH ×2 (08:00→18:00)
[2021-04-23 08:48] VITALS: BP 107/48
[2021-04-23 09:21] LABS: Basophils # (auto) 0.1 10 ^3/uL (0-0.2); Eosinophils # (auto) 0.1 10 ^3/uL (0-0.8); Hemoglobin 7.8 g/dL (13.5-17.5); Lymphocytes # (auto) 2.1 10 ^3/uL (0.4-5.4); Monocytes # (auto) 0.4 10 ^3/uL (0-1.3); Nucleated Red Blood Cells % 0.1 %
[2021-04-23 09:23] LABS: Eosinophils % (auto) 1.3 % (0.0-7.0); Hematocrit 23.5 % (41.0-53.0); Mean Corpuscular Hemoglobin 30.2 pg (28.0-32.0); Mean Corpuscular Volume 91.4 fL (80.0-100.0); Monocytes % (auto) 8.9 % (0.0-12.0); Neutrophils # (auto) 2.3 10 ^3/uL (1.6-8.6); Neutrophils % (auto) 45.8 % (37.0-80.0); Red Blood Cells 2.57 10^6/uL (4.5-5.90); Red Cell Distribution Width 18.4 % (11.8-14.3)
[2021-04-23 09:41] LABS: Albumin 1.9 g/dL (3.4-5.0); Calcium 9.2 mg/dL (8.5-10.1); Potassium 3.9 mmol/L (3.5-5.1)
[2021-04-23] MEDS: ASCORBIC ACID 500 MG TAB PO SCH ×2 (09:42→20:28)
[2021-04-23] MEDS: MULTIPLE VITAMIN TAB PO SCH (09:42)
[2021-04-23] MEDS: ZINC SULFATE 220mg CAP or TAB PO SCH (09:42)
[2021-04-23 09:45] LABS: BUN/Creatinine Ratio 26.6; Bilirubin, Total 0.2 mg/dL (0.2-1.0); Total Protein 6.9 g/dL (6.4-8.2)
[2021-04-23] MEDS: VANCOMYCIN 750mg/250ml 250 ML IV SCH (12:00)
[2021-04-23] MEDS: HYDROcodone-ACET 5/325MG TAB PO PRN (12:24)
[2021-04-23 13:00] VITALS: BP 92/49
[2021-04-23 17:00] VITALS: BP 117/59
[2021-04-23 22:00] VITALS: BP 122/62
[2021-04-24] MEDS: PIPERACILLIN-TAZOB 2.25GM 50 ML IV SCH ×5 (02:07→20:09)
[2021-04-24] MEDS: SODIUM CHLOR 0.9% PF (SALINE LOCK) 10ML VIAL/SYR IV SCH ×3 (05:23→22:38)
[2021-04-24 05:30] VITALS: BP 126/49
[2021-04-24] MEDS: HEPARIN SODIUM (PORCINE) 5000 UNITS/ML 1ML VIAL SC SCH ×2 (05:41→18:50)
[2021-04-24] MEDS: MORPHINE SULFATE INJECTION 2 MG/ML SYRG IV PRN ×2 (06:39→15:33)
[2021-04-24] MEDS: HYDROcodone-ACET 5/325MG TAB PO PRN ×3 (08:33→22:52)
[2021-04-24] MEDS: Ensure Enlive Strawberry 8oz Bottle PO SCH ×3 (08:57→18:49)
[2021-04-24] MEDS: ZINC SULFATE 220mg CAP or TAB PO SCH (10:00)
[2021-04-24 12:32] VITALS: BP 92/45
[2021-04-24] MEDS: Juven Fruit Punch Powder PACKET 28.8gm PO SCH ×2 (14:11→18:49)
[2021-04-24] MEDS: MULTIPLE VITAMIN TAB PO SCH (15:28)
[2021-04-24] MEDS: ASCORBIC ACID 500 MG TAB PO SCH ×2 (15:29→22:38)
[2021-04-24] MEDS: DAKINS HALF STR 0.25% (NaHypochlorite) 473 ML TOPICAL SOL TOP SCH (15:29)
[2021-04-24 15:33] VITALS: BP 136/64
[2021-04-24 17:58] VITALS: BP 135/46
[2021-04-24] MEDS: VANCOMYCIN 750mg/250ml 250 ML IV SCH (18:49)
[2021-04-24 22:00] VITALS: BP 126/50
[2021-04-25] MEDS: DAKINS HALF STR 0.25% (NaHypochlorite) 473 ML TOPICAL SOL TOP SCH ×3 (02:27→21:31)
[2021-04-25] MEDS: PIPERACILLIN-TAZOB 2.25GM 50 ML IV SCH ×4 (02:27→20:16)
[2021-04-25] MEDS: LACTATED RINGER'S 1,000 ML IV SCH ×3 (04:42→13:05)
[2021-04-25 05:00] VITALS: BP 123/49
[2021-04-25] MEDS: SODIUM CHLOR 0.9% PF (SALINE LOCK) 10ML VIAL/SYR IV SCH ×3 (05:42→21:31)
[2021-04-25] MEDS: HEPARIN SODIUM (PORCINE) 5000 UNITS/ML 1ML VIAL SC SCH ×2 (05:42→18:20)
[2021-04-25] MEDS: Juven Fruit Punch Powder PACKET 28.8gm PO SCH ×2 (08:00→18:19)
[2021-04-25] MEDS: Ensure Enlive Strawberry 8oz Bottle PO SCH ×3 (08:00→18:19)
[2021-04-25 08:43] VITALS: BP 114/57
[2021-04-25] MEDS: ASCORBIC ACID 500 MG TAB PO SCH ×2 (09:53→21:31)
[2021-04-25] MEDS: ZINC SULFATE 220mg CAP or TAB PO SCH (09:53)
[2021-04-25] MEDS: MULTIPLE VITAMIN TAB PO SCH (09:53)
[2021-04-25 13:00] VITALS: BP 118/64
[2021-04-25] MEDS ORDERED: VANCOMYCIN PER PHARMACY 0 MG IV SCH (13:45)
[2021-04-25] MEDS: MORPHINE SULFATE INJECTION 2 MG/ML SYRG IV PRN (15:00)
[2021-04-25 17:00] VITALS: BP 129/72
[2021-04-25] MEDS: HYDROcodone-ACET 5/325MG TAB PO PRN (20:16)
[2021-04-25 22:00] VITALS: BP 145/60
[2021-04-26] MEDS: VANCOMYCIN 750mg/250ml 250 ML IV SCH (00:01)
[2021-04-26] MEDS: PIPERACILLIN-TAZOB 2.25GM 50 ML IV SCH ×4 (01:37→20:47)
[2021-04-26] MEDS: HYDROcodone-ACET 5/325MG TAB PO PRN ×3 (04:04→18:20)
[2021-04-26] MEDS: LACTATED RINGER'S 1,000 ML IV SCH ×2 (04:55→22:57)
[2021-04-26 05:00] VITALS: BP 97/47
[2021-04-26] MEDS: SODIUM CHLOR 0.9% PF (SALINE LOCK) 10ML VIAL/SYR IV SCH ×3 (05:31→21:42)
[2021-04-26] MEDS: HEPARIN SODIUM (PORCINE) 5000 UNITS/ML 1ML VIAL SC SCH ×2 (05:33→18:39)
[2021-04-26 05:54] LABS: Basophils # (auto) 0 10 ^3/uL (0-0.2); Monocytes # (auto) 0.5 10 ^3/uL (0-1.3); Nucleated Red Blood Cells % 0.1 %; White Blood Cell 3.9 10^3/uL (4.4-10.8)
[2021-04-26 06:00] LABS: Basophils % (auto) 0.9 % (0.0-2.0); Eosinophils # (auto) 0 10 ^3/uL (0-0.8); Eosinophils % (auto) 0.8 % (0.0-7.0); Hematocrit 24.9 % (41.0-53.0); Hemoglobin 8.4 g/dL (13.5-17.5); Lymphocytes # (auto) 1.6 10 ^3/uL (0.4-5.4); Lymphocytes % (auto) 40.8 % (10.0-50.0); Mean Corpuscular Hemoglobin 30.8 pg (28.0-32.0); Mean Corpuscular Hgb Conc. 33.8 g/dL (32.0-36.0); Monocytes % (auto) 12.6 % (0.0-12.0); Neutrophils # (auto) 1.8 10 ^3/uL (1.6-8.6); Neutrophils % (auto) 44.9 % (37.0-80.0); Red Blood Cells 2.74 10^6/uL (4.5-5.90); Red Cell Distribution Width 18.7 % (11.8-14.3)
[2021-04-26 06:30] LABS: Calcium 8.6 mg/dL (8.5-10.1)
[2021-04-26] MEDS: Juven Fruit Punch Powder PACKET 28.8gm PO SCH ×2 (08:00→18:23)
[2021-04-26] MEDS: Ensure Enlive Strawberry 8oz Bottle PO SCH ×3 (08:43→18:23)
[2021-04-26] MEDS: MULTIPLE VITAMIN TAB PO SCH (08:44)
[2021-04-26] MEDS: ZINC SULFATE 220mg CAP or TAB PO SCH (08:44)
[2021-04-26] MEDS: ASCORBIC ACID 500 MG TAB PO SCH ×2 (08:44→21:41)
[2021-04-26 09:00] VITALS: BP 97/50
[2021-04-26] MEDS: DAKINS HALF STR 0.25% (NaHypochlorite) 473 ML TOPICAL SOL TOP SCH ×2 (10:00→21:41)
[2021-04-26 12:41] VITALS: BP 100/56
[2021-04-26 16:29] VITALS: BP 110/64
[2021-04-26 20:00] VITALS: BP 126/70
[2021-04-26 22:00] VITALS: BP 126/70
[2021-04-27] MEDS: HYDROcodone-ACET 5/325MG TAB PO PRN ×3 (00:17→11:00)
[2021-04-27] MEDS: LACTATED RINGER'S 1,000 ML IV SCH ×2 (00:57→02:13)
[2021-04-27] MEDS: PIPERACILLIN-TAZOB 2.25GM 50 ML IV SCH ×4 (02:19→20:15)
[2021-04-27 05:00] VITALS: BP 112/56
[2021-04-27] MEDS ORDERED: VANCOMYCIN 500 MG in D5W 5% 100 ML IV SCH (05:00)
[2021-04-27] MEDS: HEPARIN SODIUM (PORCINE) 5000 UNITS/ML 1ML VIAL SC SCH ×2 (05:47→18:36)
[2021-04-27] MEDS: SODIUM CHLOR 0.9% PF (SALINE LOCK) 10ML VIAL/SYR IV SCH ×3 (07:12→21:52)
[2021-04-27] MEDS: Ensure Enlive Strawberry 8oz Bottle PO SCH ×3 (08:13→18:23)
[2021-04-27] MEDS: Juven Fruit Punch Powder PACKET 28.8gm PO SCH ×2 (08:13→18:23)
[2021-04-27] MEDS: MORPHINE SULFATE INJECTION 2 MG/ML SYRG IV PRN (08:51)
[2021-04-27 09:00] VITALS: BP 116/62
[2021-04-27] MEDS: ZINC SULFATE 220mg CAP or TAB PO SCH (09:18)
[2021-04-27] MEDS: ASCORBIC ACID 500 MG TAB PO SCH ×2 (09:18→21:53)
[2021-04-27] MEDS: MULTIPLE VITAMIN TAB PO SCH (09:18)
[2021-04-27] MEDS: DAKINS HALF STR 0.25% (NaHypochlorite) 473 ML TOPICAL SOL TOP SCH ×2 (09:18→21:53)
[2021-04-27 13:00] VITALS: BP 114/58
[2021-04-27 17:00] VITALS: BP 118/53
[2021-04-27 22:00] VITALS: BP 127/53
[2021-04-28] MEDS: HYDROcodone-ACET 5/325MG TAB PO PRN ×3 (01:21→20:31)
[2021-04-28] MEDS: PIPERACILLIN-TAZOB 2.25GM 50 ML IV SCH ×4 (01:47→20:19)
[2021-04-28 04:56] VITALS: BP 116/63
[2021-04-28] MEDS: VANCOMYCIN 1GM/250ML 250 ML IV SCH (05:06)
[2021-04-28] MEDS: SODIUM CHLOR 0.9% PF (SALINE LOCK) 10ML VIAL/SYR IV SCH ×3 (05:40→23:29)
[2021-04-28] MEDS: HEPARIN SODIUM (PORCINE) 5000 UNITS/ML 1ML VIAL SC SCH ×2 (05:41→17:06)
[2021-04-28] MEDS: Ensure Enlive Strawberry 8oz Bottle PO SCH ×3 (08:57→18:02)
[2021-04-28] MEDS: MULTIPLE VITAMIN TAB PO SCH (08:57)
[2021-04-28] MEDS: Juven Fruit Punch Powder PACKET 28.8gm PO SCH ×2 (08:57→18:02)
[2021-04-28] MEDS: ZINC SULFATE 220mg CAP or TAB PO SCH (08:57)
[2021-04-28] MEDS: ASCORBIC ACID 500 MG TAB PO SCH ×2 (08:57→23:29)
[2021-04-28] MEDS: DAKINS HALF STR 0.25% (NaHypochlorite) 473 ML TOPICAL SOL TOP SCH ×2 (08:58→23:30)
[2021-04-28] MEDS: LACTATED RINGER'S 1,000 ML IV SCH (08:59)
[2021-04-28 09:00] VITALS: BP 109/49
[2021-04-28 13:00] VITALS: BP 108/51
[2021-04-28] MEDS: MORPHINE SULFATE INJECTION 2 MG/ML SYRG IV PRN (16:34)
[2021-04-28 17:00] VITALS: BP 110/56
[2021-04-28 22:00] VITALS: BP 107/52
[2021-04-29] MEDS: HYDROcodone-ACET 5/325MG TAB PO PRN (01:05)
[2021-04-29] MEDS: PIPERACILLIN-TAZOB 2.25GM 50 ML IV SCH ×4 (01:11→21:06)
[2021-04-29] MEDS: LACTATED RINGER'S 1,000 ML IV SCH ×3 (04:04→23:30)
[2021-04-29 05:00] VITALS: BP 111/59
[2021-04-29] MEDS: VANCOMYCIN 1GM/250ML 250 ML IV SCH (05:44)
[2021-04-29] MEDS: HEPARIN SODIUM (PORCINE) 5000 UNITS/ML 1ML VIAL SC SCH ×2 (05:48→17:10)
[2021-04-29] MEDS: SODIUM CHLOR 0.9% PF (SALINE LOCK) 10ML VIAL/SYR IV SCH ×3 (05:49→21:06)
[2021-04-29] MEDS: Ensure Enlive Strawberry 8oz Bottle PO SCH ×3 (08:37→17:48)
[2021-04-29] MEDS: ZINC SULFATE 220mg CAP or TAB PO SCH (08:37)
[2021-04-29] MEDS: Juven Fruit Punch Powder PACKET 28.8gm PO SCH ×2 (08:37→17:49)
[2021-04-29] MEDS: MULTIPLE VITAMIN TAB PO SCH (08:37)
[2021-04-29] MEDS: ASCORBIC ACID 500 MG TAB PO SCH ×2 (08:37→21:06)
[2021-04-29] MEDS: DAKINS HALF STR 0.25% (NaHypochlorite) 473 ML TOPICAL SOL TOP SCH ×2 (08:38→21:06)
[2021-04-29 09:00] VITALS: BP 106/47
[2021-04-29] MEDS: MORPHINE SULFATE INJECTION 2 MG/ML SYRG IV PRN (12:17)
[2021-04-29 13:00] VITALS: BP 116/53
[2021-04-29] MEDS: ACETAMINOPHEN 325 MG TAB PO PRN (14:38)
[2021-04-29 17:00] VITALS: BP 103/56
[2021-04-29] MEDS ORDERED: HYDROmorphone HCL 2 MG/ML VL IV PRN (17:45)
[2021-04-29] MEDS: HYDROmorphone HCL 2 MG/ML VL IV PRN (18:04)
[2021-04-29 22:00] VITALS: BP 106/50
[2021-04-30] MEDS: DAKINS HALF STR 0.25% (NaHypochlorite) 473 ML TOPICAL SOL TOP SCH ×2 (00:30→10:00)
[2021-04-30] MEDS: PIPERACILLIN-TAZOB 2.25GM 50 ML IV SCH ×2 (02:13→08:25)
[2021-04-30] MEDS: HYDROmorphone HCL 2 MG/ML VL IV PRN ×3 (04:10→17:29)
[2021-04-30] MEDS: SODIUM CHLOR 0.9% PF (SALINE LOCK) 10ML VIAL/SYR IV SCH ×3 (05:41→21:57)
[2021-04-30] MEDS: HEPARIN SODIUM (PORCINE) 5000 UNITS/ML 1ML VIAL SC SCH ×2 (05:42→17:24)
[2021-04-30 06:33] LABS: Basophils # (auto) 0 10 ^3/uL (0-0.2); Basophils % (auto) 0.9 % (0.0-2.0); Eosinophils # (auto) 0 10 ^3/uL (0-0.8); Eosinophils % (auto) 0.2 % (0.0-7.0); Hematocrit 25.7 % (41.0-53.0); Hemoglobin 8.8 g/dL (13.5-17.5); Lymphocytes # (auto) 1.5 10 ^3/uL (0.4-5.4); Lymphocytes % (auto) 46.6 % (10.0-50.0); Mean Corpuscular Hemoglobin 31.2 pg (28.0-32.0); Mean Corpuscular Hgb Conc. 34.2 g/dL (32.0-36.0); Mean Corpuscular Volume 91.3 fL (80.0-100.0); Monocytes # (auto) 0.4 10 ^3/uL (0-1.3); Monocytes % (auto) 11.5 % (0.0-12.0); Neutrophils # (auto) 1.3 10 ^3/uL (1.6-8.6); Neutrophils % (auto) 40.8 % (37.0-80.0); Nucleated Red Blood Cells % 0.3 %; Red Blood Cells 2.81 10^6/uL (4.5-5.90); Red Cell Distribution Width 19.3 % (11.8-14.3); White Blood Cell 3.3 10^3/uL (4.4-10.8)
[2021-04-30] MEDS: VANCOMYCIN 1GM/250ML 250 ML IV SCH (06:33)
[2021-04-30 06:53] LABS: Potassium 4.2 mmol/L (3.5-5.1)
[2021-04-30 06:54] LABS: Calcium 9.2 mg/dL (8.5-10.1)
[2021-04-30 08:00] VITALS: BP 119/58
[2021-04-30] MEDS: Ensure Enlive Strawberry 8oz Bottle PO SCH ×3 (08:00→18:00)
[2021-04-30 08:40] VITALS: BP 119/58
[2021-04-30] MEDS: Juven Fruit Punch Powder PACKET 28.8gm PO SCH ×2 (09:00→16:08)
[2021-04-30] MEDS: ZINC SULFATE 220mg CAP or TAB PO SCH (09:28)
[2021-04-30] MEDS: MULTIPLE VITAMIN TAB PO SCH (09:29)
[2021-04-30] MEDS: ASCORBIC ACID 500 MG TAB PO SCH (09:29)
[2021-04-30] MEDS: LACTATED RINGER'S 1,000 ML IV SCH (11:05)
[2021-04-30] MEDS: MORPHINE SULFATE INJECTION 2 MG/ML SYRG IV PRN (21:57)
[2021-04-30 21:58] VITALS: BP 149/74
[2021-05-01 04:30] VITALS: BP 165/64
[2021-05-01] MEDS: HEPARIN SODIUM (PORCINE) 5000 UNITS/ML 1ML VIAL SC SCH ×2 (07:00→17:10)
[2021-05-01] MEDS: SODIUM CHLOR 0.9% PF (SALINE LOCK) 10ML VIAL/SYR IV SCH ×3 (07:00→22:15)
[2021-05-01] MEDS: Ensure Enlive Strawberry 8oz Bottle PO SCH ×3 (08:00→18:08)
[2021-05-01] MEDS: Juven Fruit Punch Powder PACKET 28.8gm PO SCH ×2 (08:00→18:09)
[2021-05-01] MEDS: MULTIPLE VITAMIN TAB PO SCH (09:59)
[2021-05-01] MEDS: DAKINS HALF STR 0.25% (NaHypochlorite) 473 ML TOPICAL SOL TOP SCH (09:59)
[2021-05-01 13:00] VITALS: BP 121/61
[2021-05-01] MEDS: MORPHINE SULFATE INJECTION 2 MG/ML SYRG IV PRN ×2 (15:00→22:15)
[2021-05-01 17:00] VITALS: BP 157/76
[2021-05-01 22:00] VITALS: BP 154/76
[2021-05-02] MEDS: MORPHINE SULFATE INJECTION 2 MG/ML SYRG IV PRN ×2 (00:29→04:07)
[2021-05-02] MEDS: DAKINS HALF STR 0.25% (NaHypochlorite) 473 ML TOPICAL SOL TOP SCH ×3 (04:15→22:32)
[2021-05-02 05:00] VITALS: BP 134/68
[2021-05-02] MEDS: SODIUM CHLOR 0.9% PF (SALINE LOCK) 10ML VIAL/SYR IV SCH ×3 (05:02→22:13)
[2021-05-02] MEDS: HEPARIN SODIUM (PORCINE) 5000 UNITS/ML 1ML VIAL SC SCH ×2 (05:02→18:07)
[2021-05-02 09:00] VITALS: BP 117/57
[2021-05-02] MEDS: Ensure Enlive Strawberry 8oz Bottle PO SCH ×3 (09:41→18:07)
[2021-05-02] MEDS: Juven Fruit Punch Powder PACKET 28.8gm PO SCH ×2 (10:00→18:00)
[2021-05-02] MEDS: MULTIPLE VITAMIN TAB PO SCH (10:01)
[2021-05-02 13:00] VITALS: BP 116/58
[2021-05-02 17:00] VITALS: BP 118/64
[2021-05-03] MEDS: MORPHINE SULFATE INJECTION 2 MG/ML SYRG IV PRN ×3 (00:31→20:37)
[2021-05-03] MEDS: ACETAMINOPHEN 325 MG TAB PO PRN (04:50)
[2021-05-03 05:00] VITALS: BP 111/59
[2021-05-03] MEDS: SODIUM CHLOR 0.9% PF (SALINE LOCK) 10ML VIAL/SYR IV SCH ×3 (05:46→23:02)
[2021-05-03] MEDS: HEPARIN SODIUM (PORCINE) 5000 UNITS/ML 1ML VIAL SC SCH ×2 (05:59→18:06)
[2021-05-03 08:06] VITALS: BP 117/69
[2021-05-03] MEDS: Ensure Enlive Strawberry 8oz Bottle PO SCH ×3 (10:46→18:05)
[2021-05-03] MEDS: DAKINS HALF STR 0.25% (NaHypochlorite) 473 ML TOPICAL SOL TOP SCH ×2 (10:47→23:02)
[2021-05-03] MEDS: Juven Fruit Punch Powder PACKET 28.8gm PO SCH ×2 (10:47→18:05)
[2021-05-03] MEDS: MULTIPLE VITAMIN TAB PO SCH (12:17)
[2021-05-03 12:22] VITALS: BP 119/60
[2021-05-03 16:35] VITALS: BP 121/66
[2021-05-03 22:00] VITALS: BP 120/65
[2021-05-04] MEDS: MORPHINE SULFATE INJECTION 2 MG/ML SYRG IV PRN (03:22)
[2021-05-04 05:00] VITALS: BP 111/68
[2021-05-04] MEDS: SODIUM CHLOR 0.9% PF (SALINE LOCK) 10ML VIAL/SYR IV SCH ×2 (05:43→14:17)
[2021-05-04] MEDS: HEPARIN SODIUM (PORCINE) 5000 UNITS/ML 1ML VIAL SC SCH ×2 (05:44→18:29)
[2021-05-04 08:30] VITALS: BP 130/64
[2021-05-04] MEDS: MULTIPLE VITAMIN TAB PO SCH (10:57)
[2021-05-04] MEDS: DAKINS HALF STR 0.25% (NaHypochlorite) 473 ML TOPICAL SOL TOP SCH (10:57)
[2021-05-04] MEDS: Ensure Enlive Strawberry 8oz Bottle PO SCH ×3 (10:57→18:31)
[2021-05-04] MEDS: Juven Fruit Punch Powder PACKET 28.8gm PO SCH ×2 (10:57→18:31)
[2021-05-04 13:00] VITALS: BP 95/54
[2021-05-04 16:46] VITALS: BP 95/54
[2021-05-04 17:00] VITALS: BP 92/53
== END 2021-05-04 19:00 | DRG 592 ==
LOC: EDBD 19:32 → ER 19:37 → TELE 04-06 00:44 → TELE-WESTW 04-06 18:33
PROVIDERS: ADMIT Nurse Practitioner Family; ATTEND Internal Medicine
PROC: 0T9B30Z Drainage of Bladder with Drainage Device, Percutaneous Approach (ICD-10-PCS; principal; 2021-04-07)
DX: L89.154 Pressure ulcer of sacral region, stage 4 (principal); G82.50 Quadriplegia, unspecified; N17.9 Acute kidney failure, unspecified; N13.6 Pyonephrosis; L89.303 Pressure ulcer of unspecified buttock, stage 3; D63.8 Anemia in other chronic diseases classified elsewhere; D50.0 Iron deficiency anemia secondary to blood loss (chronic); K59.00 Constipation, unspecified; N18.9 Chronic kidney disease, unspecified; Z20.822 Contact with and (suspected) exposure to COVID-19; N32.0 Bladder-neck obstruction; N40.0 Benign prostatic hyperplasia without lower urinary tract symptoms; Z74.01 Bed confinement status; Z68.21 Body mass index [BMI] 21.0-21.9, adult
CPT/HCPCS: 36415; 71045; 74176; 76942; 80048; 80053; 80061; 80202; 81001; 82565; 83605; 83735; 85025; 85610; 85652; 86141; 87040; 87077; 87081; 87086; 87186; 87205; 87426; 93306; 96365; 96366; 96368; 96375; G0378; J2405; J2543; J3490; J7060

== ENCOUNTER 2021-11-23 14:43 | Emergency (ER) | payer OTHER, MEDICAID ==
[~2021-11-23] VITALS: Ht 167.6 cm; Wt 68.0 kg
[~2021-11-23 14:43] MED LIST: ASCO500T11 PO; BACL10TA PO; CHOL20007 PO; FOLI1TAB6 PO; GABA100C9 PO; MULTCAP45 PO; SULF400I3 PO; TRAM50TA2 PO
[2021-11-23 17:11] LABS: Basophils # (auto) 0 10 ^3/uL (0-0.2); Basophils % (auto) 0.9 % (0.0-2.0); Eosinophils # (auto) 0.1 10 ^3/uL (0-0.8); Eosinophils % (auto) 1.8 % (0.0-7.0); Hematocrit 33.6 % (41.0-53.0); Hemoglobin 11.5 g/dL (13.5-17.5); Lymphocytes # (auto) 1.9 10 ^3/uL (0.4-5.4); Lymphocytes % (auto) 39.6 % (10.0-50.0); Mean Corpuscular Hgb Conc. 34.2 g/dL (32.0-36.0); Mean Corpuscular Volume 87.7 fL (80.0-100.0); Monocytes # (auto) 0.4 10 ^3/uL (0-1.3); Monocytes % (auto) 8.4 % (0.0-12.0); Neutrophils # (auto) 2.4 10 ^3/uL (1.6-8.6); Neutrophils % (auto) 49.3 % (37.0-80.0); Nucleated Red Blood Cells % 0.1 %; Red Blood Cells 3.83 10^6/uL (4.5-5.90); Red Cell Distribution Width 15.1 % (11.8-14.3); White Blood Cell 4.8 10^3/uL (4.4-10.8)
[2021-11-23 17:29] LABS: BUN/Creatinine Ratio 31.4
[2021-11-23 17:44] LABS: Urine Bacteria MOD /hpf (None Seen); Urine Blood 1+ /uL (Negative); Urine Budding Yeast FEW /hpf (None Seen); Urine Mucus FEW (None Seen); Urine Specific Gravity 1.018 (1.001-1.035); Urine WBC 282 /hpf (0 - 3); Urine WBC Clumps PRESENT /hpf (None Seen)
[2021-11-23] MEDS ORDERED: SULF400T11 PO (17:54)
[2021-11-23 21:03] VITALS: BP 115/48
== END 2021-11-23 22:07 | disposition home or self-care (01) ==
LOC: EDBD 14:43 → EDSEX 14:43 → ER 14:43
DX: N39.0 Urinary tract infection, site not specified (principal); D64.9 Anemia, unspecified; Z79.899 Other long term (current) drug therapy
CPT/HCPCS: 36415; 80048; 81001; 85025; 87086; 87088; 87186

== ENCOUNTER → 2022-01-07 | Outpatient (CLI) | payer OTHER, MEDICAID ==
[~2022-01-07] MED LIST changes: +AMPI500C8 PO; +SULF400T11 PO
[2022-01-07 13:53] LABS: Basophils # (auto) 0 10 ^3/uL (0-0.2); Basophils % (auto) 0.9 % (0.0-2.0); Eosinophils # (auto) 0.2 10 ^3/uL (0-0.8); Eosinophils % (auto) 4.3 % (0.0-7.0); Hematocrit 31.3 % (41.0-53.0); Hemoglobin 10.8 g/dL (13.5-17.5); Lymphocytes # (auto) 1.7 10 ^3/uL (0.4-5.4); Lymphocytes % (auto) 32.3 % (10.0-50.0); Mean Corpuscular Hemoglobin 29.3 pg (28.0-32.0); Mean Corpuscular Hgb Conc. 34.4 g/dL (32.0-36.0); Mean Corpuscular Volume 85.3 fL (80.0-100.0); Monocytes # (auto) 0.4 10 ^3/uL (0-1.3); Monocytes % (auto) 8.3 % (0.0-12.0); Neutrophils # (auto) 2.9 10 ^3/uL (1.6-8.6); Neutrophils % (auto) 54.2 % (37.0-80.0); Nucleated Red Blood Cells % 0.1 %; Red Blood Cells 3.67 10^6/uL (4.5-5.90); Red Cell Distribution Width 14.4 % (11.8-14.3); White Blood Cell 5.4 10^3/uL (4.4-10.8)
[2022-01-07 14:20] LABS: Albumin 2.9 g/dL (3.4-5.0); Calcium 9.1 mg/dL (8.5-10.1)
[2022-01-07 14:27] LABS: BUN/Creatinine Ratio 41.3; Bilirubin, Total 0.3 mg/dL (0.2-1.0); CRP High Sensitivity 0.99 mg/dL (< 0.3); Total Protein 7.1 g/dL (6.4-8.2)
[2022-01-07 14:28] LABS: Folate (Folic Acid) 11.12 ng/mL (5.38-24)
[2022-01-08 06:06] LABS: RPR Non Reactive (Non Reactive)
[2022-01-17 15:06] LABS: Methylmalonic Acid 116 nmol/L (0-378)
== END | disposition home or self-care (01) ==
LOC: LAB 13:15
PROVIDERS: ATTEND Psychiatry & Neurology Neurology
DX: H53.2 Diplopia (principal); G81.12 Spastic hemiplegia affecting left dominant side; G81.11 Spastic hemiplegia affecting right dominant side; R53.1 Weakness; D53.1 Other megaloblastic anemias, not elsewhere classified; G82.50 Quadriplegia, unspecified; E11.9 Type 2 diabetes mellitus without complications; Z79.899 Other long term (current) drug therapy; G81.10 Spastic hemiplegia affecting unspecified side
CPT/HCPCS: 36415; 80053; 82306; 82607; 82746; 83036; 83090; 85025; 85652; 86141; 86376; 86592

== ENCOUNTER 2022-01-17 20:45 | Inpatient (IN) | payer OTHER, MEDICAID ==
[~2022-01-17] VITALS: Ht 182.9 cm; Wt 81.6 kg
[~2022-01-17 20:45] MED LIST changes: -AMPI500C8 PO
[2022-01-17 22:22] LABS: Basophils # (auto) 0 10 ^3/uL (0-0.2); Basophils % (auto) 0.2 % (0.0-2.0); Eosinophils # (auto) 0 10 ^3/uL (0-0.8); Hematocrit 39.5 % (41.0-53.0); Hemoglobin 13.2 g/dL (13.5-17.5); Lymphocytes # (auto) 1.3 10 ^3/uL (0.4-5.4); Lymphocytes % (auto) 11.3 % (10.0-50.0); Mean Corpuscular Hemoglobin 28.9 pg (28.0-32.0); Mean Corpuscular Hgb Conc. 33.3 g/dL (32.0-36.0); Mean Corpuscular Volume 86.6 fL (80.0-100.0); Monocytes # (auto) 1.2 10 ^3/uL (0-1.3); Monocytes % (auto) 10.6 % (0.0-12.0); Neutrophils # (auto) 9.1 10 ^3/uL (1.6-8.6); Neutrophils % (auto) 77.9 % (37.0-80.0); Nucleated Red Blood Cells % 0.1 %; Red Blood Cells 4.56 10^6/uL (4.5-5.90); Red Cell Distribution Width 14.9 % (11.8-14.3); White Blood Cell 11.6 10^3/uL (4.4-10.8)
[2022-01-17 22:43] LABS: Albumin 2.9 g/dL (3.4-5.0); BUN/Creatinine Ratio 30.8
[2022-01-17 22:45] LABS: Lactic Acid w/Reflex 3.3 mmol/L (0.4-2.0)
[2022-01-17 22:46] LABS: Bilirubin, Total 0.6 mg/dL (0.2-1.0)
[2022-01-17] MEDS ORDERED: ACETAMINOPHEN 500 MG TAB PO ONE (23:45)
[2022-01-18] MEDS ORDERED: cefTRIAXone 1GM/50ML D5W 50 ML IV ONE
[2022-01-18] MEDS ORDERED: metroNIDAZOLE 500MG/100ML 100 ML IV ONE
[2022-01-18] MEDS ORDERED: CIPROFLOXACIN 400MG/200ML 200 ML IV ONE
[2022-01-18] MEDS ORDERED: MORPHINE SULFATE INJ 2 MG/ml SYRG IV PRN (01:00)
[2022-01-18] MEDS ORDERED: ACETAMINOPHEN 325 MG TAB PO PRN (01:00)
[2022-01-18] MEDS ORDERED: DEXTROSE (50%) 50ML SYRG IV PRN (01:00)
[2022-01-18] MEDS ORDERED: NITROGLYCERIN 0.4 MG SL TAB SL PRN (01:00)
[2022-01-18] MEDS ORDERED: ONDANSETRON HCL 4 MG/2 ML VIAL IV PRN (01:00)
[2022-01-18] MEDS: ATORVASTATIN 20 MG TAB PO SCH ×2 (01:10→22:19)
[2022-01-18] MEDS ORDERED: SODIUM CHLORIDE 0.9% 500 ML IV ONE ×2 (02:45)
[2022-01-18 04:30] VITALS: BP 112/62
[2022-01-18] MEDS ORDERED: InsuLIN REG 1unit/0.01ml Soln (100units/ml) SC SCH (06:00)
[2022-01-18] MEDS ORDERED: ACCU-CHEK COMFORT CURVE STRIP VI SCH (06:00)
[2022-01-18] MEDS ORDERED: metroNIDAZOLE 500MG/100ML 100 ML IV SCH (06:00)
[2022-01-18 06:40] LABS: Urine Bacteria MANY /hpf (None Seen); Urine Blood 1+ /uL (Negative); Urine Mucus FEW (None Seen); Urine Specific Gravity 1.018 (1.001-1.035); Urine WBC 2106 /hpf (0 - 3); Urine WBC Clumps PRESENT /hpf (None Seen)
[2022-01-18 09:00] VITALS: BP 122/50
[2022-01-18] MEDS: PANTOPRAZOLE 40 MG TAB PO SCH (09:19)
[2022-01-18] MEDS ORDERED: ASPirin 81 mg TAB PO SCH (10:00)
[2022-01-18] MEDS: ERTAPENEM SOD INJ 1 GM in SODIUM CHL 0.9% 50 ML IV SCH (12:30)
[2022-01-18] MEDS: SODIUM CHLORIDE 0.9% 1,000 ML IV SCH ×2 (12:30→23:26)
[2022-01-18 13:00] VITALS: BP 124/54
[2022-01-18 17:00] VITALS: BP 126/44
[2022-01-18] MEDS ORDERED: cefTRIAXone 1GM/50ML D5W 50 ML IV SCH (21:00)
[2022-01-18 22:00] VITALS: BP 119/30
[2022-01-18] MEDS: HYDROcodone-ACET 5/325MG TAB PO PRN (23:26)
[2022-01-19 05:41] VITALS: BP 114/40
[2022-01-19 06:29] LABS: Basophils # (auto) 0 10 ^3/uL (0-0.2); Basophils % (auto) 0.4 % (0.0-2.0); Eosinophils # (auto) 0.2 10 ^3/uL (0-0.8); Eosinophils % (auto) 2.8 % (0.0-7.0); Hematocrit 26.2 % (41.0-53.0); Hemoglobin 9.2 g/dL (13.5-17.5); Lymphocytes # (auto) 2.2 10 ^3/uL (0.4-5.4); Lymphocytes % (auto) 30.9 % (10.0-50.0); Mean Corpuscular Hgb Conc. 35.3 g/dL (32.0-36.0); Mean Corpuscular Volume 84.9 fL (80.0-100.0); Monocytes # (auto) 0.8 10 ^3/uL (0-1.3); Monocytes % (auto) 10.8 % (0.0-12.0); Neutrophils # (auto) 3.9 10 ^3/uL (1.6-8.6); Neutrophils % (auto) 55.1 % (37.0-80.0); Nucleated Red Blood Cells % 0.2 %; Red Blood Cells 3.08 10^6/uL (4.5-5.90); Red Cell Distribution Width 14.6 % (11.8-14.3); White Blood Cell 7.2 10^3/uL (4.4-10.8)
[2022-01-19 06:40] LABS: Albumin 2.4 g/dL (3.4-5.0); Potassium 3.6 mmol/L (3.5-5.1)
[2022-01-19 06:44] LABS: Bilirubin, Total 0.4 mg/dL (0.2-1.0); Total Protein 5.8 g/dL (6.4-8.2)
[2022-01-19 08:36] VITALS: BP 105/31
[2022-01-19] MEDS: PANTOPRAZOLE 40 MG TAB PO SCH (10:59)
[2022-01-19] MEDS: ERTAPENEM SOD INJ 1 GM in SODIUM CHL 0.9% 50 ML IV SCH (10:59)
[2022-01-19 12:54] VITALS: BP 113/34
[2022-01-19 12:57] LABS: INR 1.09 (0.9-1.15); Partial Thromboplastin Time 31.6 sec (23.6-33.0)
[2022-01-19] MEDS: SODIUM CHLORIDE 0.9% 1,000 ML IV SCH (14:01)
[2022-01-19 16:55] VITALS: BP 102/30
[2022-01-19] MEDS: ATORVASTATIN 20 MG TAB PO SCH (21:38)
[2022-01-19 22:00] VITALS: BP 107/51
[2022-01-20] VITALS (12 sets, daily range): BP systolic 110–137; BP diastolic 32–56
[2022-01-20] MEDS: SODIUM CHLORIDE 0.9% 1,000 ML IV SCH ×2 (05:35→16:56)
[2022-01-20 06:22] LABS: Basophils # (auto) 0 10 ^3/uL (0-0.2); Basophils % (auto) 0.6 % (0.0-2.0); Eosinophils # (auto) 0.2 10 ^3/uL (0-0.8); Eosinophils % (auto) 2.8 % (0.0-7.0); Hemoglobin 9.1 g/dL (13.5-17.5); Lymphocytes # (auto) 2.1 10 ^3/uL (0.4-5.4); Lymphocytes % (auto) 34.5 % (10.0-50.0); Mean Corpuscular Hgb Conc. 33.9 g/dL (32.0-36.0); Mean Corpuscular Volume 85.7 fL (80.0-100.0); Monocytes # (auto) 0.6 10 ^3/uL (0-1.3); Monocytes % (auto) 9.6 % (0.0-12.0); Neutrophils # (auto) 3.2 10 ^3/uL (1.6-8.6); Neutrophils % (auto) 52.5 % (37.0-80.0); Nucleated Red Blood Cells % 0.2 %; Red Blood Cells 3.15 10^6/uL (4.5-5.90); Red Cell Distribution Width 14.8 % (11.8-14.3); White Blood Cell 6.1 10^3/uL (4.4-10.8)
[2022-01-20 06:33] LABS: BUN/Creatinine Ratio 28.6; Potassium 4.1 mmol/L (3.5-5.1)
[2022-01-20] MEDS ORDERED: LIDOCAINE 2%HCL (LOCAL ANESTH.) INJ 10ml MDV ONE (08:08)
[2022-01-20] MEDS ORDERED: MIDAZOLAM HCL 2MG/2ML 2ml VIAL (1mg/ml) IV ONE (09:30)
[2022-01-20] MEDS ORDERED: fentaNYL CITRATE 100 MCG/2 ML VL IV ONE (09:30)
[2022-01-20] MEDS: ERTAPENEM SOD INJ 1 GM in SODIUM CHL 0.9% 50 ML IV SCH (10:13)
[2022-01-20] MEDS: PANTOPRAZOLE 40 MG TAB PO SCH (10:13)
[2022-01-20] MEDS: ATORVASTATIN 20 MG TAB PO SCH (21:35)
[2022-01-21] MEDS: SODIUM CHLORIDE 0.9% 1,000 ML IV SCH ×2 (04:25→19:26)
[2022-01-21 05:00] VITALS: BP 102/53
[2022-01-21 09:00] VITALS: BP 103/40
[2022-01-21] MEDS: PANTOPRAZOLE 40 MG TAB PO SCH (09:42)
[2022-01-21] MEDS: ERTAPENEM SOD INJ 1 GM in SODIUM CHL 0.9% 50 ML IV SCH (09:42)
[2022-01-21] MEDS: HYDROcodone-ACET 5/325MG TAB PO PRN ×2 (10:01→21:44)
[2022-01-21] MEDS ORDERED: SULF400T11 PO (10:26)
[2022-01-21 13:00] VITALS: BP 119/53
[2022-01-21 17:00] VITALS: BP 150/49
[2022-01-21] MEDS ORDERED: MILK OF MAGNESIA 30ML SUSP PO ONE (19:30)
[2022-01-21] MEDS: ATORVASTATIN 20 MG TAB PO SCH (21:45)
[2022-01-21] MEDS: DOCUSATE SOD 100 MG CAP PO SCH (21:45)
[2022-01-21 22:00] VITALS: BP 137/49
[2022-01-22 04:41] VITALS: BP 113/50
[2022-01-22 06:51] LABS: Basophils # (auto) 0 10 ^3/uL (0-0.2); Basophils % (auto) 0.5 % (0.0-2.0); Eosinophils # (auto) 0.2 10 ^3/uL (0-0.8); Eosinophils % (auto) 2.7 % (0.0-7.0); Hematocrit 27.8 % (41.0-53.0); Hemoglobin 9.6 g/dL (13.5-17.5); Lymphocytes # (auto) 2.1 10 ^3/uL (0.4-5.4); Lymphocytes % (auto) 28.1 % (10.0-50.0); Mean Corpuscular Hemoglobin 29.7 pg (28.0-32.0); Mean Corpuscular Hgb Conc. 34.7 g/dL (32.0-36.0); Mean Corpuscular Volume 85.7 fL (80.0-100.0); Monocytes # (auto) 0.6 10 ^3/uL (0-1.3); Monocytes % (auto) 8.4 % (0.0-12.0); Neutrophils # (auto) 4.4 10 ^3/uL (1.6-8.6); Neutrophils % (auto) 60.3 % (37.0-80.0); Nucleated Red Blood Cells % 0.1 %; Red Blood Cells 3.24 10^6/uL (4.5-5.90); Red Cell Distribution Width 14.5 % (11.8-14.3); White Blood Cell 7.3 10^3/uL (4.4-10.8)
[2022-01-22 06:55] LABS: Calcium 8.1 mg/dL (8.5-10.1)
[2022-01-22] MEDS: SODIUM CHLORIDE 0.9% 1,000 ML IV SCH ×2 (07:36→20:25)
[2022-01-22] MEDS: DOCUSATE SOD 100 MG CAP PO SCH (10:00)
[2022-01-22] MEDS: ERTAPENEM SOD INJ 1 GM in SODIUM CHL 0.9% 50 ML IV SCH (10:00)
[2022-01-22] MEDS: PANTOPRAZOLE 40 MG TAB PO SCH (10:00)
[2022-01-22 17:00] VITALS: BP 118/53
[2022-01-22] MEDS: HYDROcodone-ACET 5/325MG TAB PO PRN (21:18)
[2022-01-22] MEDS: ATORVASTATIN 20 MG TAB PO SCH (21:18)
[2022-01-22 22:00] VITALS: BP 100/42
[2022-01-23 05:00] VITALS: BP 110/46
[2022-01-23 05:35] LABS: Basophils # (auto) 0 10 ^3/uL (0-0.2); Basophils % (auto) 0.4 % (0.0-2.0); Eosinophils # (auto) 0.2 10 ^3/uL (0-0.8); Hematocrit 27.4 % (41.0-53.0); Hemoglobin 9.4 g/dL (13.5-17.5); Lymphocytes # (auto) 2.6 10 ^3/uL (0.4-5.4); Lymphocytes % (auto) 35.5 % (10.0-50.0); Mean Corpuscular Hemoglobin 29.4 pg (28.0-32.0); Mean Corpuscular Hgb Conc. 34.3 g/dL (32.0-36.0); Mean Corpuscular Volume 85.7 fL (80.0-100.0); Monocytes # (auto) 0.7 10 ^3/uL (0-1.3); Monocytes % (auto) 8.9 % (0.0-12.0); Neutrophils # (auto) 3.8 10 ^3/uL (1.6-8.6); Neutrophils % (auto) 52.2 % (37.0-80.0); Nucleated Red Blood Cells % 0.1 %; Red Cell Distribution Width 14.3 % (11.8-14.3); White Blood Cell 7.3 10^3/uL (4.4-10.8)
[2022-01-23 05:49] LABS: Potassium 4.2 mmol/L (3.5-5.1)
[2022-01-23 05:51] LABS: BUN/Creatinine Ratio 28.2
[2022-01-23 08:30] VITALS: BP 88/35
[2022-01-23] MEDS: SODIUM CHLORIDE 0.9% 1,000 ML IV SCH ×2 (09:45→23:05)
[2022-01-23 12:30] VITALS: BP 103/39
[2022-01-23] MEDS: HYDROcodone-ACET 5/325MG TAB PO PRN ×2 (13:23→22:16)
[2022-01-23] MEDS: PANTOPRAZOLE 40 MG TAB PO SCH (13:24)
[2022-01-23] MEDS: DOCUSATE SOD 100 MG CAP PO SCH (13:24)
[2022-01-23] MEDS: DAKINS QUARTER STR 0.125% (NaHypochlorite) 473 ML TOPICAL SOL TOP SCH (13:27)
[2022-01-23] MEDS: ERTAPENEM SOD INJ 1 GM in SODIUM CHL 0.9% 50 ML IV SCH (13:28)
[2022-01-23] MEDS ORDERED: LACTULOSE 20Gm/30ML SOLN PO PRN (13:30)
[2022-01-23 17:00] VITALS: BP 94/47
[2022-01-23] MEDS: ATORVASTATIN 20 MG TAB PO SCH (21:12)
[2022-01-23 22:00] VITALS: BP 141/52
[2022-01-24] MEDS: SODIUM CHLORIDE 0.9% 1,000 ML IV SCH (00:05)
[2022-01-24 05:00] VITALS: BP 123/47
[2022-01-24 08:23] VITALS: BP 112/46
[2022-01-24] MEDS: ERTAPENEM SOD INJ 1 GM in SODIUM CHL 0.9% 50 ML IV SCH (09:55)
[2022-01-24] MEDS: DOCUSATE SOD 100 MG CAP PO SCH (09:56)
[2022-01-24] MEDS: PANTOPRAZOLE 40 MG TAB PO SCH (09:56)
[2022-01-24] MEDS: DAKINS QUARTER STR 0.125% (NaHypochlorite) 473 ML TOPICAL SOL TOP SCH (09:58)
[2022-01-24 12:33] VITALS: BP 136/55
[2022-01-24 16:39] VITALS: BP 119/48
[2022-01-24] MEDS: HYDROcodone-ACET 5/325MG TAB PO PRN (18:01)
[2022-01-24] MEDS: ATORVASTATIN 20 MG TAB PO SCH (20:54)
[2022-01-24 21:48] VITALS: BP 112/44
[2022-01-25] VITALS (8 sets, daily range): BP systolic 97–116; BP diastolic 40–50
[2022-01-25] MEDS: SODIUM CHLORIDE 0.9% 1,000 ML IV SCH ×2 (01:45→14:05)
[2022-01-25] MEDS: HYDROcodone-ACET 5/325MG TAB PO PRN ×3 (03:56→16:09)
[2022-01-25] MEDS: DOCUSATE SOD 100 MG CAP PO SCH (09:33)
[2022-01-25] MEDS: ERTAPENEM SOD INJ 1 GM in SODIUM CHL 0.9% 50 ML IV SCH (09:33)
[2022-01-25] MEDS: PANTOPRAZOLE 40 MG TAB PO SCH (09:33)
[2022-01-25] MEDS: DAKINS QUARTER STR 0.125% (NaHypochlorite) 473 ML TOPICAL SOL TOP SCH (09:34)
[2022-01-25] MEDS ORDERED: ARTIFICIAL TEARS 15ml EACHEYE PRN (15:30)
[2022-01-25] MEDS: ATORVASTATIN 20 MG TAB PO SCH (21:04)
[2022-01-26] MEDS: SODIUM CHLORIDE 0.9% 1,000 ML IV SCH (04:36)
[2022-01-26 05:03] VITALS: BP 122/47
[2022-01-26 08:54] VITALS: BP 141/58
[2022-01-26] MEDS ORDERED: AMPI500C8 PO (09:51)
[2022-01-26] MEDS: ERTAPENEM SOD INJ 1 GM in SODIUM CHL 0.9% 50 ML IV SCH (10:43)
[2022-01-26] MEDS: DOCUSATE SOD 100 MG CAP PO SCH (10:43)
[2022-01-26] MEDS: PANTOPRAZOLE 40 MG TAB PO SCH (10:43)
[2022-01-26] MEDS: DAKINS QUARTER STR 0.125% (NaHypochlorite) 473 ML TOPICAL SOL TOP SCH (10:44)
[2022-01-26 13:14] VITALS: BP 125/68
== END 2022-01-26 14:30 | disposition hospice, home (50) | DRG 871 ==
LOC: ER 20:45 → EDUNIT# 20:45 → EDBD 20:45 → TELE 01-18 00:51 → TELE-CENTR 01-18 03:50 → CENTRAL 01-25 21:06
PROVIDERS: ADMIT Nurse Practitioner; ATTEND Internal Medicine
PROC: 0BBG3ZX Excision of Left Upper Lung Lobe, Percutaneous Approach, Diagnostic (ICD-10-PCS; principal; 2022-01-20)
DX: A41.81 Sepsis due to Enterococcus (principal); L89.154 Pressure ulcer of sacral region, stage 4; G82.50 Quadriplegia, unspecified; I21.A1 Myocardial infarction type 2; N39.0 Urinary tract infection, site not specified; E11.9 Type 2 diabetes mellitus without complications; K52.9 Noninfective gastroenteritis and colitis, unspecified; E04.2 Nontoxic multinodular goiter; R91.1 Solitary pulmonary nodule; G89.29 Other chronic pain; M54.9 Dorsalgia, unspecified; N40.0 Benign prostatic hyperplasia without lower urinary tract symptoms; K59.00 Constipation, unspecified; K80.20 Calculus of gallbladder without cholecystitis without obstruction; Z20.822 Contact with and (suspected) exposure to COVID-19; I25.2 Old myocardial infarction; Z51.5 Encounter for palliative care; Z81.8 Family history of other mental and behavioral disorders; Z87.891 Personal history of nicotine dependence; Z74.01 Bed confinement status; Z79.899 Other long term (current) drug therapy; Z91.81 History of falling; Z79.84 Long term (current) use of oral hypoglycemic drugs
CPT/HCPCS: 10005; 36415; 70450; 71045; 71250; 74176; 76536; 77012; 80048; 80053; 81001; 83605; 83690; 84443; 84484; 85025; 85610; 85730; 87040; 87077; 87086; 87088; 87186; 93306; 96361; 96365; 96367; 97163; 99291; G0378; J0696; J1335; J1815; J2001; J2250; J3490

== ENCOUNTER 2022-11-01 17:20 | Inpatient (IN) | payer OTHER, MEDICAID ==
[~2022-11-01] VITALS: Ht 182.9 cm; Wt 68.4 kg
[~2022-11-01 17:20] MED LIST changes: +AMPI500C8 PO; -SULF400I3 PO; -SULF400T11 PO
[2022-11-01 23:46] LABS: Basophils # (auto) 0.1 10 ^3/uL (0-0.2); Eosinophils # (auto) 0.1 10 ^3/uL (0-0.8); Neutrophils # (auto) 2.6 10 ^3/uL (1.6-8.6); Nucleated Red Blood Cells % 0.2 %
[2022-11-01 23:48] LABS: Basophils % (auto) 1.5 % (0.0-2.0); Hematocrit 14.1 % (41.0-53.0); Lymphocytes # (auto) 1.8 10 ^3/uL (0.4-5.4); Lymphocytes % (auto) 36.5 % (10.0-50.0); Mean Corpuscular Hemoglobin 16.2 pg (28.0-32.0); Mean Corpuscular Hgb Conc. 28.2 g/dL (32.0-36.0); Mean Corpuscular Volume 57.4 fL (80.0-100.0); Monocytes # (auto) 0.3 10 ^3/uL (0-1.3); Monocytes % (auto) 6.8 % (0.0-12.0); Neutrophils % (auto) 53.2 % (37.0-80.0); Red Blood Cells 2.45 10^6/uL (4.5-5.90)
[2022-11-01 23:49] LABS: Red Cell Distribution Width 21.8 % (11.8-14.3)
[2022-11-02] VITALS (11 sets, daily range): BP systolic 103–136; BP diastolic 34–53
[2022-11-02 00:06] LABS: BUN/Creatinine Ratio 20.3; Calcium 8.6 mg/dL (8.5-10.1); Potassium 4.1 mmol/L (3.5-5.1)
[2022-11-02 00:09] LABS: Bilirubin, Total 0.3 mg/dL (0.2-1.0); Total Protein 7.5 g/dL (6.4-8.2)
[2022-11-02 00:13] LABS: Lactic Acid w/Reflex 2.2 mmol/L (0.4-2.0)
[2022-11-02] MEDS ORDERED: ACETAMINOPHEN 325 MG TAB PO PRN (00:30)
[2022-11-02] MEDS ORDERED: BACLOFEN 10 MG TAB PO PRN (00:30)
[2022-11-02] MEDS ORDERED: TEMAZEPAM 15 MG CAP PO PRN (00:30)
[2022-11-02] MEDS ORDERED: ONDANSETRON HCL 4 MG/2 ML VIAL IV PRN (00:30)
[2022-11-02] MEDS ORDERED: cefTRIAXone 1GM/50ML D5W 50 ML IV ONE (00:30)
[2022-11-02 01:00] LABS: % Iron Saturation 2.7 % (20-55)
[2022-11-02] MEDS ORDERED: ENOXAPARIN SOD 40 MG/0.4 ML SYRINGE SC SCH (10:00)
[2022-11-02 10:28] LABS: Eosinophils # (auto) 0.1 10 ^3/uL (0-0.8); Monocytes # (auto) 0.5 10 ^3/uL (0-1.3); Monocytes % (auto) 7.6 % (0.0-12.0); Red Blood Cells 3.71 10^6/uL (4.5-5.90); White Blood Cell 6.6 10^3/uL (4.4-10.8)
[2022-11-02 10:30] LABS: Basophils # (auto) 0 10 ^3/uL (0-0.2); Basophils % (auto) 0.6 % (0.0-2.0); Eosinophils % (auto) 1.4 % (0.0-7.0); Hematocrit 25.6 % (41.0-53.0); Hemoglobin 8.3 g/dL (13.5-17.5); Lymphocytes # (auto) 1.8 10 ^3/uL (0.4-5.4); Lymphocytes % (auto) 26.9 % (10.0-50.0); Mean Corpuscular Hemoglobin 22.4 pg (28.0-32.0); Mean Corpuscular Hgb Conc. 32.4 g/dL (32.0-36.0); Neutrophils # (auto) 4.2 10 ^3/uL (1.6-8.6); Neutrophils % (auto) 63.5 % (37.0-80.0); Nucleated Red Blood Cells % 0.3 %
[2022-11-02 10:31] LABS: Red Cell Distribution Width 32.9 % (11.8-14.3)
[2022-11-02] MEDS: cefTRIAXone 1GM/50ML D5W 50 ML IV SCH (10:45)
[2022-11-02] MEDS: GABAPENTIN 100 MG CAP PO SCH ×2 (10:46→22:17)
[2022-11-02] MEDS ORDERED: PANTOPRAZOLE 40 MG/10 ML VIAL INJ IV ONE (12:00)
[2022-11-02] MEDS: HYDROcodone-ACET 5/325MG TAB PO PRN ×2 (12:43→22:17)
[2022-11-02] MEDS ORDERED: FLEET MINERAL OIL ENEMA 133 ML PR ONE (16:30)
[2022-11-03] VITALS (7 sets, daily range): BP systolic 102–134; BP diastolic 39–59
[2022-11-03 06:15] LABS: Mean Corpuscular Volume 73.3 fL (80.0-100.0); White Blood Cell 5.7 10^3/uL (4.4-10.8)
[2022-11-03 06:18] LABS: Hematocrit 27.3 % (41.0-53.0); Hemoglobin 8.3 g/dL (13.5-17.5); Mean Corpuscular Hemoglobin 22.2 pg (28.0-32.0); Mean Corpuscular Hgb Conc. 30.3 g/dL (32.0-36.0); Red Blood Cells 3.73 10^6/uL (4.5-5.90)
[2022-11-03 06:25] LABS: Red Cell Distribution Width 32.2 % (11.8-14.3)
[2022-11-03 06:27] LABS: BUN/Creatinine Ratio 26.1; Calcium 8.4 mg/dL (8.5-10.1)
[2022-11-03 06:39] LABS: % Iron Saturation 5.6 % (20-55)
[2022-11-03 06:49] LABS: Carcinoembryonic Antigen 8.59 ng/mL (<5.0 OR =)
[2022-11-03 06:50] LABS: Folate (Folic Acid) 7.98 ng/mL (5.38-24)
[2022-11-03] MEDS: cefTRIAXone 1GM/50ML D5W 50 ML IV SCH (09:00)
[2022-11-03] MEDS: PANTOPRAZOLE 40 MG/10 ML VIAL INJ IV SCH (10:40)
[2022-11-03] MEDS: GABAPENTIN 100 MG CAP PO SCH ×2 (10:42→21:07)
[2022-11-03 18:32] LABS: Basophils # (auto) 0 10 ^3/uL (0-0.2); Basophils % (auto) 0.8 % (0.0-2.0); Eosinophils # (auto) 0.1 10 ^3/uL (0-0.8); Eosinophils % (auto) 2.6 % (0.0-7.0); Hematocrit 23.4 % (41.0-53.0); Hemoglobin 7.2 g/dL (13.5-17.5); Lymphocytes # (auto) 1.4 10 ^3/uL (0.4-5.4); Lymphocytes % (auto) 28.1 % (10.0-50.0); Mean Corpuscular Hemoglobin 21.9 pg (28.0-32.0); Mean Corpuscular Hgb Conc. 30.9 g/dL (32.0-36.0); Mean Corpuscular Volume 70.9 fL (80.0-100.0); Monocytes # (auto) 0.6 10 ^3/uL (0-1.3); Monocytes % (auto) 11.1 % (0.0-12.0); Neutrophils % (auto) 57.4 % (37.0-80.0); Nucleated Red Blood Cells % 0.3 %; White Blood Cell 5.1 10^3/uL (4.4-10.8)
[2022-11-03 18:45] LABS: Albumin 2.6 g/dL (3.4-5.0); Calcium 8.2 mg/dL (8.5-10.1); Potassium 3.8 mmol/L (3.5-5.1)
[2022-11-03 18:51] LABS: BUN/Creatinine Ratio 19.2; Bilirubin, Total 0.3 mg/dL (0.2-1.0); Total Protein 6.9 g/dL (6.4-8.2)
[2022-11-04 05:05] VITALS: BP 114/42
[2022-11-04 09:00] VITALS: BP 124/67
[2022-11-04] MEDS: PANTOPRAZOLE 40 MG/10 ML VIAL INJ IV SCH (09:34)
[2022-11-04] MEDS: GABAPENTIN 100 MG CAP PO SCH ×2 (09:35→21:16)
[2022-11-04] MEDS: cefTRIAXone 1GM/50ML D5W 50 ML IV SCH (09:35)
[2022-11-04] MEDS: HYDROcodone-ACET 5/325MG TAB PO PRN ×2 (11:22)
[2022-11-04 13:00] VITALS: BP 104/39
[2022-11-04] MEDS ORDERED: DOCUSATE SOD 100 MG CAP PO ONE (15:45)
[2022-11-04] MEDS ORDERED: FERROUS SULFATE 325mg EC TAB PO ONE (15:45)
[2022-11-04 16:58] LABS: Basophils # (auto) 0 10 ^3/uL (0-0.2); Basophils % (auto) 0.7 % (0.0-2.0); Eosinophils # (auto) 0.1 10 ^3/uL (0-0.8); Eosinophils % (auto) 2.3 % (0.0-7.0); Hematocrit 24.6 % (41.0-53.0); Hemoglobin 7.4 g/dL (13.5-17.5); Lymphocytes # (auto) 2.1 10 ^3/uL (0.4-5.4); Lymphocytes % (auto) 37.4 % (10.0-50.0); Mean Corpuscular Hemoglobin 21.9 pg (28.0-32.0); Mean Corpuscular Hgb Conc. 30.1 g/dL (32.0-36.0); Mean Corpuscular Volume 72.8 fL (80.0-100.0); Monocytes # (auto) 0.7 10 ^3/uL (0-1.3); Monocytes % (auto) 12.4 % (0.0-12.0); Neutrophils # (auto) 2.6 10 ^3/uL (1.6-8.6); Neutrophils % (auto) 47.2 % (37.0-80.0); Nucleated Red Blood Cells % 0.3 %; Red Blood Cells 3.38 10^6/uL (4.5-5.90); White Blood Cell 5.6 10^3/uL (4.4-10.8)
[2022-11-04 17:00] VITALS: BP 114/48
[2022-11-04 17:01] LABS: Red Cell Distribution Width 33.7 % (11.8-14.3)
[2022-11-04] MEDS: FERROUS SULFATE 325mg EC TAB PO SCH (18:00)
[2022-11-04] MEDS: SUCRALFATE 1 GM TAB PO SCH ×2 (18:00→21:16)
[2022-11-04 20:00] VITALS: BP 120/45
[2022-11-04] MEDS: DOCUSATE SOD 100 MG CAP PO SCH (21:16)
[2022-11-04] MEDS: PANTOPRAZOLE 40 MG TAB PO SCH (21:17)
[2022-11-04 22:00] VITALS: BP_SYST 106; BP_SYST 108; BP_DIAS 37; BP_DIAS 45
[2022-11-05] MEDS: HYDROcodone-ACET 5/325MG TAB PO PRN (02:06)
[2022-11-05 05:00] VITALS: BP 104/34
[2022-11-05] MEDS: SUCRALFATE 1 GM TAB PO SCH ×3 (06:05→17:00)
[2022-11-05 06:09] LABS: Basophils # (auto) 0 10 ^3/uL (0-0.2); Eosinophils # (auto) 0.1 10 ^3/uL (0-0.8); Hemoglobin 7.1 g/dL (13.5-17.5); Monocytes # (auto) 0.5 10 ^3/uL (0-1.3); Neutrophils # (auto) 3.1 10 ^3/uL (1.6-8.6)
[2022-11-05 06:13] LABS: Basophils % (auto) 0.7 % (0.0-2.0); Eosinophils % (auto) 1.9 % (0.0-7.0); Hematocrit 22.8 % (41.0-53.0); Lymphocytes % (auto) 34.7 % (10.0-50.0); Mean Corpuscular Hemoglobin 22.1 pg (28.0-32.0); Mean Corpuscular Hgb Conc. 31.3 g/dL (32.0-36.0); Mean Corpuscular Volume 70.8 fL (80.0-100.0); Monocytes % (auto) 9.1 % (0.0-12.0); Neutrophils % (auto) 53.6 % (37.0-80.0); Nucleated Red Blood Cells % 0.1 %; Red Blood Cells 3.22 10^6/uL (4.5-5.90); White Blood Cell 5.8 10^3/uL (4.4-10.8)
[2022-11-05 06:19] LABS: Red Cell Distribution Width 34.5 % (11.8-14.3)
[2022-11-05 09:00] VITALS: BP 105/36
[2022-11-05] MEDS: cefTRIAXone 1GM/50ML D5W 50 ML IV SCH (09:00)
[2022-11-05] MEDS ORDERED: DOCU-94 PO (09:20)
[2022-11-05] MEDS ORDERED: PANT40TA2 PO (09:20)
[2022-11-05] MEDS ORDERED: SUCR1TAB22 OR (09:20)
[2022-11-05] MEDS ORDERED: FER325T PO (09:20)
[2022-11-05] MEDS: GABAPENTIN 100 MG CAP PO SCH (10:21)
[2022-11-05] MEDS: FERROUS SULFATE 325mg EC TAB PO SCH (10:21)
[2022-11-05] MEDS: DOCUSATE SOD 100 MG CAP PO SCH (10:22)
[2022-11-05] MEDS: PANTOPRAZOLE 40 MG TAB PO SCH (10:22)
[2022-11-05 13:00] VITALS: BP 114/42
[2022-11-05 15:56] VITALS: BP 114/42
[2022-11-05 16:54] VITALS: BP 97/83
== END 2022-11-05 17:05 | disposition hospice, home (50) | DRG 698 ==
LOC: ER 17:20 → EDUNIT# 17:20 → EDBD 17:20 → OVERFLOW 11-02 00:29 → EAST 11-02 23:17
PROVIDERS: ADMIT Nurse Practitioner; ATTEND Internal Medicine Geriatric Medicine
PROC: 30233N1 Transfusion of Nonautologous Red Blood Cells into Peripheral Vein, Percutaneous Approach (ICD-10-PCS; principal; 2022-11-02)
DX: T83.018A Breakdown (mechanical) of other urinary catheter, initial encounter (principal); G82.50 Quadriplegia, unspecified; E44.0 Moderate protein-calorie malnutrition; N39.0 Urinary tract infection, site not specified; N17.9 Acute kidney failure, unspecified; K92.2 Gastrointestinal hemorrhage, unspecified; D64.9 Anemia, unspecified; E11.9 Type 2 diabetes mellitus without complications; I70.0 Atherosclerosis of aorta; Z20.822 Contact with and (suspected) exposure to COVID-19; Y83.9 Surgical procedure, unspecified as the cause of abnormal reaction of the patient, or of later complication, without mention of misadventure at the time of the procedure; Y92.89 Other specified places as the place of occurrence of the external cause; Z68.20 Body mass index [BMI] 20.0-20.9, adult
CPT/HCPCS: 36415; 74176; 80048; 80053; 82270; 82378; 82607; 82728; 82746; 83540; 83550; 83605; 85025; 86850; 86900; 86901; 86920; 87426; C9113; G0378; J0696

== ENCOUNTER 2023-08-06 19:31 | Inpatient (IN) | payer OTHER, MEDICAID ==
[~2023-08-06] VITALS: Ht 182.9 cm; Wt 68.1 kg
[~2023-08-06 19:31] MED LIST changes: -AMPI500C8 PO; +DOCU-94 PO; +FER325T PO; +FOLI-119 PO; -FOLI1TAB6 PO; +GABA-1308 PO; -GABA100C9 PO; +PANT40TA2 PO; +SUCR1TAB22 OR
[2023-08-06] MEDS ORDERED: HYDROcodone-ACET 10/325MG TAB PO ONE (21:15)
[2023-08-07] MEDS ORDERED: SODIUM CHLORIDE 0.9% 1,000 ML IVB ONE (02:30)
[2023-08-07] MEDS ORDERED: cefTRIAXone 1GM/50ML D5W 50 ML IV ONE ×2 (02:30→18:00)
[2023-08-07] MEDS ORDERED: MORPHINE SULFATE 4 MG/ML SYR/VIAL IV PRN (02:30)
[2023-08-07] MEDS ORDERED: ONDANSETRON HCL 4 MG/2 ML VIAL IV ONE (02:30)
[2023-08-07 03:37] LABS: Basophils # (auto) 0.1 10 ^3/uL (0-0.2); Basophils % (auto) 0.9 % (0.0-2.0); Eosinophils # (auto) 0.3 10 ^3/uL (0-0.8); Eosinophils % (auto) 5.6 % (0.0-7.0); Hematocrit 29.8 % (41.0-53.0); Hemoglobin 9.3 g/dL (13.5-17.5); Lymphocytes # (auto) 2.6 10 ^3/uL (0.4-5.4); Lymphocytes % (auto) 46.7 % (10.0-50.0); Mean Corpuscular Hemoglobin 23.6 pg (28.0-32.0); Mean Corpuscular Hgb Conc. 31.3 g/dL (32.0-36.0); Mean Corpuscular Volume 75.5 fL (80.0-100.0); Monocytes # (auto) 0.4 10 ^3/uL (0-1.3); Monocytes % (auto) 7.9 % (0.0-12.0); Neutrophils # (auto) 2.2 10 ^3/uL (1.6-8.6); Neutrophils % (auto) 38.9 % (37.0-80.0); Red Blood Cells 3.95 10^6/uL (4.5-5.90); Red Cell Distribution Width 21.2 % (11.8-14.3); White Blood Cell 5.6 10^3/uL (4.4-10.8)
[2023-08-07 04:01] LABS: Albumin 3.9 g/dL (3.2-4.8); Alkaline Phosphatase 67 U/L (46-116); Anion Gap 6 (5-15); Aspartate Aminotransferase 13 U/L (13-40); BUN/Creatinine Ratio 35.4 (10.0-20.0); Blood Urea Nitrogen 17 mg/dL (9-23); Calcium 8.9 mg/dL (8.7-10.4); Carbon Dioxide 25 mmol/L (20-30); Chloride 107 mmol/L (98-107); Glucose 89 mg/dL (74-106); Lipase 29 U/L (12-53); Potassium 3.9 mmol/L (3.5-5.1); Sodium 138 mmol/L (136-145)
[2023-08-07 04:02] LABS: Bilirubin, Total 0.3 mg/dL (0.2-1.0); Total Protein 7.3 g/dL (5.7-8.2)
[2023-08-07 04:10] LABS: Alanine Aminotransferase 9 U/L (7-40)
[2023-08-07 04:13] LABS: Partial Thromboplastin Time 30.3 SEC (24.5-34.5)
[2023-08-07 05:47] LABS: INR 1.09 (0.9-1.15); Prothrombin Time 11.4 sec (9.3-11.8)
[2023-08-07] MEDS ORDERED: SODIUM CHLORIDE 0.9% 1,500 ML IV ONE (06:15)
[2023-08-07] MEDS ORDERED: metroNIDAZOLE 500MG/100ML 100 ML IV ONE (06:15)
[2023-08-07 09:20] VITALS: PULSE 54; RESP 16; O2SAT 95
[2023-08-07] MEDS ORDERED: NITROGLYCERIN 0.4 MG SL TAB SL PRN (09:30)
[2023-08-07] MEDS ORDERED: LACTULOSE 20Gm/30ML SOLN PO ONE (09:30)
[2023-08-07 10:00] LABS: % Iron Saturation 5.2 % (20-55)
[2023-08-07] MEDS ORDERED: ONDANSETRON HCL 4 MG/2 ML VIAL IV PRN (11:15)
[2023-08-07] MEDS ORDERED: ACETAMINOPHEN 325 MG TAB PO PRN (11:15)
[2023-08-07] MEDS ORDERED: ENOXAPARIN SOD 40 MG/0.4 ML SYRINGE SC ONE (11:15)
[2023-08-07] MEDS: FERROUS SULFATE 325mg EC TAB PO SCH (11:55)
[2023-08-07] MEDS: SUCRALFATE 1 GM TAB PO SCH ×3 (11:59→22:52)
[2023-08-07 16:00] LABS: Urine Bacteria NONE SEEN /hpf (None Seen); Urine Blood 2+ /uL (Negative); Urine Budding Yeast MODERATE /hpf (None Seen); Urine Clarity HAZY (Clear); Urine Protein, UAD 2+ (Negative); Urine Specific Gravity 1.014 (1.001-1.035); Urine Urobilinogen Normal (Negative); Urine WBC 90 /hpf (0 - 3); Urine pH 6.5 (5.0-8.0)
[2023-08-07 16:07] LABS: Urine Color STRAW (Yellow)
[2023-08-07 19:30] VITALS: PULSE 77; RESP 20; O2SAT 99
[2023-08-07 22:39] VITALS: BP 141/67; PULSE 72; RESP 18; RESP 96; TEMP 97.3; O2SAT 96
[2023-08-07] MEDS: BACLOFEN 10 MG TAB PO SCH (22:52)
[2023-08-07] MEDS: GABAPENTIN 100 MG CAP PO SCH (22:53)
[2023-08-08 05:00] VITALS: BP 100/51; PULSE 57; RESP 17; TEMP 97.6; O2SAT 100
[2023-08-08] MEDS: SUCRALFATE 1 GM TAB PO SCH ×4 (05:17→21:29)
[2023-08-08] MEDS: HYDROcodone-ACET 5/325MG TAB PO PRN (05:17)
[2023-08-08 05:51] LABS: Basophils # (auto) 0.1 10 ^3/uL (0-0.2); Eosinophils # (auto) 0.3 10 ^3/uL (0-0.8); Eosinophils % (auto) 4.8 % (0.0-7.0); Hemoglobin 8.6 g/dL (13.5-17.5); Monocytes # (auto) 0.5 10 ^3/uL (0-1.3); Neutrophils # (auto) 4.1 10 ^3/uL (1.6-8.6); Nucleated Red Blood Cells % 0.1 %; White Blood Cell 6.9 10^3/uL (4.4-10.8)
[2023-08-08 05:55] LABS: Basophils % (auto) 0.8 % (0.0-2.0); Hematocrit 28.8 % (41.0-53.0); Lymphocytes # (auto) 1.9 10 ^3/uL (0.4-5.4); Lymphocytes % (auto) 27.6 % (10.0-50.0); Mean Corpuscular Hemoglobin 23.5 pg (28.0-32.0); Mean Corpuscular Hgb Conc. 29.9 g/dL (32.0-36.0); Mean Corpuscular Volume 78.7 fL (80.0-100.0); Monocytes % (auto) 6.8 % (0.0-12.0); Red Blood Cells 3.66 10^6/uL (4.5-5.90)
[2023-08-08 06:03] LABS: Red Cell Distribution Width 20.6 % (11.8-14.3)
[2023-08-08 06:15] LABS: Folate (Folic Acid) > 24.00 ng/mL (>5.38)
[2023-08-08 06:21] LABS: Albumin 3.4 g/dL (3.2-4.8); Alkaline Phosphatase 61 U/L (46-116); Anion Gap 9 (5-15); Aspartate Aminotransferase 15 U/L (13-40); BUN/Creatinine Ratio 22.9 (10.0-20.0); Bilirubin, Total 0.3 mg/dL (0.2-1.0); Blood Urea Nitrogen 8 mg/dL (9-23); Calcium 8.4 mg/dL (8.7-10.4); Carbon Dioxide 21 mmol/L (20-30); Chloride 109 mmol/L (98-107); Glucose 66 mg/dL (74-106); Potassium 3.4 mmol/L (3.5-5.1); Sodium 139 mmol/L (136-145); Total Protein 6.4 g/dL (5.7-8.2)
[2023-08-08 06:24] LABS: Alanine Aminotransferase < 9 U/L (7-40)
[2023-08-08 06:35] LABS: LDL Cholesterol 77 mg/dL (< 100); Triglycerides 52 mg/dL (< 150)
[2023-08-08 06:36] LABS: CRP High Sensitivity 0.94 mg/dL (<1.0)
[2023-08-08 06:37] LABS: Cholesterol 118 mg/dL (< 200); HDL Cholesterol 34 mg/dL (40-59)
[2023-08-08] MEDS ORDERED: POTASSIUM EFFERVESENT TAB 25 MEQ PO ONE (06:45)
[2023-08-08] MEDS ORDERED: CYANOCOBALAMIN (B-12) 1000 MCG/1 ML VIAL IM ONE (06:45)
[2023-08-08] MEDS: Ensure HIGH Protein Chocolate 8oz Bottle PO SCH ×3 (08:00→17:15)
[2023-08-08 09:00] VITALS: BP 104/55; PULSE 61; RESP 16; TEMP 98; O2SAT 100
[2023-08-08] MEDS ORDERED: cefTRIAXone 1GM/50ML D5W 50 ML IV SCH (09:00)
[2023-08-08] MEDS ORDERED: LACTULOSE 20Gm/30ML SOLN PO ONE (09:30)
[2023-08-08] MEDS: PANTOPRAZOLE 40 MG TAB PO SCH (10:17)
[2023-08-08] MEDS: GABAPENTIN 100 MG CAP PO SCH ×2 (10:17→21:29)
[2023-08-08] MEDS: BACLOFEN 10 MG TAB PO SCH ×2 (10:17→21:29)
[2023-08-08] MEDS: ENOXAPARIN SOD 40 MG/0.4 ML SYRINGE SC SCH (10:17)
[2023-08-08 13:00] VITALS: BP 90/44; PULSE 68; RESP 14; TEMP 98.1; O2SAT 98
[2023-08-08] MEDS: FERROUS SULFATE 325mg EC TAB PO SCH (13:42)
[2023-08-08] MEDS: MEROPENEM 1GM IVPB 100 ML IV SCH ×2 (16:51→21:40)
[2023-08-08 17:00] VITALS: BP 95/50; PULSE 68; RESP 18; TEMP 99.4; O2SAT 99
[2023-08-08 20:00] VITALS: PULSE 82; RESP 17; O2SAT 100
[2023-08-08 22:00] VITALS: BP 107/55; PULSE 86; RESP 17; TEMP 98.6; O2SAT 100
[2023-08-09 05:00] VITALS: BP 99/52; PULSE 65; RESP 14; TEMP 98.9; O2SAT 93
[2023-08-09] MEDS: SUCRALFATE 1 GM TAB PO SCH ×4 (06:09→21:45)
[2023-08-09] MEDS: MEROPENEM 1GM IVPB 100 ML IV SCH ×3 (06:09→22:00)
[2023-08-09 07:17] LABS: Chloride 108 mmol/L (98-107); Potassium 3.8 mmol/L (3.5-5.1); Sodium 138 mmol/L (136-145)
[2023-08-09 07:18] LABS: Anion Gap 5 (5-15); Carbon Dioxide 25 mmol/L (20-30)
[2023-08-09 07:19] LABS: Calcium 8.3 mg/dL (8.7-10.4)
[2023-08-09 07:23] LABS: Glucose 93 mg/dL (74-106)
[2023-08-09 07:24] LABS: Blood Urea Nitrogen 12 mg/dL (9-23)
[2023-08-09 07:27] LABS: Basophils # (auto) 0 10 ^3/uL (0-0.2); Eosinophils # (auto) 0.3 10 ^3/uL (0-0.8); Hemoglobin 8.1 g/dL (13.5-17.5); Lymphocytes # (auto) 2.2 10 ^3/uL (0.4-5.4); Monocytes # (auto) 0.6 10 ^3/uL (0-1.3)
[2023-08-09 07:29] LABS: Basophils % (auto) 0.5 % (0.0-2.0); Eosinophils % (auto) 4.3 % (0.0-7.0); Hematocrit 26.5 % (41.0-53.0); Lymphocytes % (auto) 34.4 % (10.0-50.0); Mean Corpuscular Hemoglobin 23.5 pg (28.0-32.0); Mean Corpuscular Hgb Conc. 30.5 g/dL (32.0-36.0); Mean Corpuscular Volume 77.1 fL (80.0-100.0); Monocytes % (auto) 8.4 % (0.0-12.0); Neutrophils # (auto) 3.4 10 ^3/uL (1.6-8.6); Neutrophils % (auto) 52.4 % (37.0-80.0); Red Blood Cells 3.43 10^6/uL (4.5-5.90); White Blood Cell 6.5 10^3/uL (4.4-10.8)
[2023-08-09 07:39] LABS: Red Cell Distribution Width 20.8 % (11.8-14.3)
[2023-08-09] MEDS: Ensure HIGH Protein Chocolate 8oz Bottle PO SCH ×3 (08:32→18:16)
[2023-08-09 09:00] VITALS: BP 110/68; PULSE 87; RESP 20; TEMP 98.2; O2SAT 100
[2023-08-09] MEDS: BACLOFEN 10 MG TAB PO SCH ×2 (10:04→21:45)
[2023-08-09] MEDS: CYANOCOBALAMIN 500 MCG TAB PO SCH (10:04)
[2023-08-09] MEDS: GABAPENTIN 100 MG CAP PO SCH ×2 (10:04→21:45)
[2023-08-09] MEDS: PANTOPRAZOLE 40 MG TAB PO SCH (10:04)
[2023-08-09] MEDS: ENOXAPARIN SOD 40 MG/0.4 ML SYRINGE SC SCH (10:05)
[2023-08-09] MEDS ORDERED: MIRA25TA PO (11:41)
[2023-08-09] MEDS: FERROUS SULFATE 325mg EC TAB PO SCH (12:17)
[2023-08-09 14:00] VITALS: BP 114/63; PULSE 79; RESP 20; TEMP 98.5; O2SAT 96
[2023-08-09 17:50] VITALS: BP 96/54; PULSE 68; RESP 20; TEMP 98.3; O2SAT 99
[2023-08-09 20:00] VITALS: BP 96/54; PULSE 68; RESP 20; TEMP 97.6
[2023-08-10 05:00] VITALS: BP 108/59; PULSE 81; RESP 18; O2SAT 100
[2023-08-10] MEDS: SUCRALFATE 1 GM TAB PO SCH ×4 (05:48→21:22)
[2023-08-10] MEDS: MEROPENEM 1GM IVPB 100 ML IV SCH (05:48)
[2023-08-10 09:00] VITALS: BP 103/53; PULSE 78; RESP 16; TEMP 98.4; O2SAT 99
[2023-08-10] MEDS: Ensure HIGH Protein Chocolate 8oz Bottle PO SCH ×3 (09:02→18:23)
[2023-08-10 09:10] LABS: Basophils # (auto) 0 10 ^3/uL (0-0.2); Basophils % (auto) 0.6 % (0.0-2.0); Eosinophils # (auto) 0.3 10 ^3/uL (0-0.8); Mean Corpuscular Volume 76.4 fL (80.0-100.0); Neutrophils # (auto) 3.5 10 ^3/uL (1.6-8.6); Nucleated Red Blood Cells % 0.2 %
[2023-08-10 09:11] LABS: Eosinophils % (auto) 4.7 % (0.0-7.0); Hemoglobin 7.8 g/dL (13.5-17.5); Lymphocytes # (auto) 2.1 10 ^3/uL (0.4-5.4); Lymphocytes % (auto) 32.5 % (10.0-50.0); Mean Corpuscular Hemoglobin 23.1 pg (28.0-32.0); Mean Corpuscular Hgb Conc. 30.2 g/dL (32.0-36.0); Monocytes # (auto) 0.5 10 ^3/uL (0-1.3); Monocytes % (auto) 7.5 % (0.0-12.0); Neutrophils % (auto) 54.7 % (37.0-80.0); White Blood Cell 6.4 10^3/uL (4.4-10.8)
[2023-08-10 09:12] LABS: Red Cell Distribution Width 20.2 % (11.8-14.3)
[2023-08-10 09:15] LABS: Chloride 109 mmol/L (98-107); Potassium 3.9 mmol/L (3.5-5.1); Sodium 139 mmol/L (136-145)
[2023-08-10 09:16] LABS: Anion Gap 7 (5-15); Calcium 8.8 mg/dL (8.5-10.1); Carbon Dioxide 23 mmol/L (20-30)
[2023-08-10 09:21] LABS: BUN/Creatinine Ratio 25.6 (10.0-20.0); Blood Urea Nitrogen 11 mg/dL (9-23); Glucose 117 mg/dL (74-106)
[2023-08-10 09:35] LABS: Hepatitis B Surface Antigen Negative (Negative)
[2023-08-10] MEDS: ENOXAPARIN SOD 40 MG/0.4 ML SYRINGE SC SCH (09:50)
[2023-08-10] MEDS: CYANOCOBALAMIN 500 MCG TAB PO SCH (09:50)
[2023-08-10] MEDS: BACLOFEN 10 MG TAB PO SCH ×2 (09:50→21:19)
[2023-08-10] MEDS: PANTOPRAZOLE 40 MG TAB PO SCH (09:50)
[2023-08-10] MEDS: GABAPENTIN 100 MG CAP PO SCH ×2 (09:50→21:18)
[2023-08-10 09:55] LABS: Hepatitis C Antibody Negative (Negative)
[2023-08-10] MEDS: FERROUS SULFATE 325mg EC TAB PO SCH (11:25)
[2023-08-10 13:00] VITALS: BP 108/60; PULSE 75; RESP 15; O2SAT 99
[2023-08-10 17:00] VITALS: BP 97/56; PULSE 77; RESP 15; TEMP 98.3; O2SAT 99
[2023-08-10 20:00] VITALS: PULSE 91; RESP 16
[2023-08-10] MEDS: HYDROcodone-ACET 5/325MG TAB PO PRN (21:17)
[2023-08-10 22:00] VITALS: BP 119/54; PULSE 91; RESP 16; TEMP 98.5; O2SAT 97
[2023-08-11 05:00] VITALS: BP 90/50; PULSE 72; RESP 15; TEMP 98.3; O2SAT 99
[2023-08-11 05:57] VITALS: BP 104/53; PULSE 71
[2023-08-11] MEDS: HYDROcodone-ACET 5/325MG TAB PO PRN ×2 (05:59→06:00)
[2023-08-11] MEDS: SUCRALFATE 1 GM TAB PO SCH ×2 (06:00→12:00)
[2023-08-11 06:34] LABS: Basophils # (auto) 0 10 ^3/uL (0-0.2); Basophils % (auto) 0.6 % (0.0-2.0); Eosinophils # (auto) 0.3 10 ^3/uL (0-0.8); Eosinophils % (auto) 4.9 % (0.0-7.0); Hemoglobin 7.2 g/dL (13.5-17.5); Lymphocytes # (auto) 2.3 10 ^3/uL (0.4-5.4); Monocytes # (auto) 0.7 10 ^3/uL (0-1.3); Nucleated Red Blood Cells % 0.1 %; White Blood Cell 6.3 10^3/uL (4.4-10.8)
[2023-08-11 06:38] LABS: Hematocrit 23.5 % (41.0-53.0); Mean Corpuscular Hemoglobin 23.9 pg (28.0-32.0); Mean Corpuscular Hgb Conc. 30.9 g/dL (32.0-36.0); Mean Corpuscular Volume 77.4 fL (80.0-100.0); Monocytes % (auto) 11.1 % (0.0-12.0); Neutrophils # (auto) 2.9 10 ^3/uL (1.6-8.6); Neutrophils % (auto) 46.4 % (37.0-80.0); Red Blood Cells 3.03 10^6/uL (4.5-5.90); Red Cell Distribution Width 20.5 % (11.8-14.3)
[2023-08-11 06:48] LABS: Anion Gap 6 (5-15); Carbon Dioxide 26 mmol/L (20-30); Chloride 105 mmol/L (98-107); Sodium 137 mmol/L (136-145)
[2023-08-11 06:49] LABS: Calcium 8.1 mg/dL (8.7-10.4)
[2023-08-11 06:54] LABS: Blood Urea Nitrogen 18 mg/dL (9-23); Glucose 99 mg/dL (74-106)
[2023-08-11 08:00] VITALS: PULSE 91; RESP 18
[2023-08-11] MEDS: Ensure HIGH Protein Chocolate 8oz Bottle PO SCH ×2 (09:37→13:44)
[2023-08-11] MEDS: PANTOPRAZOLE 40 MG TAB PO SCH (09:52)
[2023-08-11] MEDS: GABAPENTIN 100 MG CAP PO SCH (09:52)
[2023-08-11] MEDS: BACLOFEN 10 MG TAB PO SCH (09:52)
[2023-08-11] MEDS: CYANOCOBALAMIN 500 MCG TAB PO SCH (09:52)
[2023-08-11] MEDS: ENOXAPARIN SOD 40 MG/0.4 ML SYRINGE SC SCH (09:52)
[2023-08-11 10:00] VITALS: BP 97/50; PULSE 76; RESP 18; TEMP 98.3; O2SAT 98
[2023-08-11] MEDS: FERROUS SULFATE 325mg EC TAB PO SCH (13:44)
[2023-08-11 16:18] VITALS: TEMP 36.8
== END 2023-08-11 16:35 | disposition hospice, home (50) | DRG 698 ==
LOC: EDBD 19:31 → ER 19:31 → OVERFLOW 08-07 09:37 → CENTRAL 08-07 23:08
PROVIDERS: ADMIT Internal Medicine Pulmonary Disease; ATTEND Internal Medicine Pulmonary Disease
DX: T83.511A Infection and inflammatory reaction due to indwelling urethral catheter, initial encounter (principal); G82.50 Quadriplegia, unspecified; L89.154 Pressure ulcer of sacral region, stage 4; R31.9 Hematuria, unspecified; K59.00 Constipation, unspecified; D50.8 Other iron deficiency anemias; E87.6 Hypokalemia; R63.6 Underweight; E53.8 Deficiency of other specified B group vitamins; F03.90 Unspecified dementia, unspecified severity, without behavioral disturbance, psychotic disturbance, mood disturbance, and anxiety; Y83.8 Other surgical procedures as the cause of abnormal reaction of the patient, or of later complication, without mention of misadventure at the time of the procedure; K52.89 Other specified noninfective gastroenteritis and colitis; N20.0 Calculus of kidney; Z79.899 Other long term (current) drug therapy; Y92.89 Other specified places as the place of occurrence of the external cause; Z68.20 Body mass index [BMI] 20.0-20.9, adult
CPT/HCPCS: 36415; 71045; 71250; 74176; 80048; 80053; 80061; 81001; 82306; 82607; 82746; 83540; 83550; 83605; 83690; 83735; 84100; 84443; 84484; 85025; 85610; 85730; 86141; 86803; 87040; 87086; 87340; G0378; J0696; J2185; J3490